=== PATIENT | male | born 1940 | race Two or more races ===

== ENCOUNTER 2019-03-02 12:16 | Inpatient (IN) | payer MEDICARE, OTHER ==
--- NOTE | 2019-03-02 13:06 | PDOC ---
History of Present Illness - General Chief Complaint: Shortness of Breath Stated Complaint: TROUBLE BREATHING Time Seen by Provider: 03/02/19 13:02 History Source: Patient Exam Limitations: No Limitations - History of Present Illness Initial Comments: 03/02/19 13:02 Andrew Mcdermott is a 78M with PMH asthma, COPD on home nebs, GERD presenting with shortness of breath. Patient and family at bedside report patient has been having 2 days of worsening SOB. Have been using inhalers and nebs without significant improvement. Has been smoking 1-2ppd for 60 years, has been reduced to 0.5ppd in recent years but still smokes. Has a chronic cough but nonproductive. Has also been having nausea without vomiting as well as GERD-like reflux burning for the last few days, took Protonix without much improvement. Constipation for the last few days as well, has abd pain and swelling for 2 days, has had a BM today without improvement of abd pain. No past surgical history or abd surgeries. Denies chest pain, palpitations, dizziness, weakness, urinary sx. Chronic lower back pain, denies recent injuries. Past History - Past Medical History Allergies/Adverse Reactions: Allergies Allergy/AdvReac Type Severity Reaction Status Date / Time No Known Allergies Allergy Verified 03/02/19 12:45 Home Medications: Ambulatory Orders Meclizine HCl [Antivert -] 25 mg PO TID PRN #14 tablet 08/04/13 No Home Medications 0 dose .ROUTE UTDICT 08/04/13 Asthma: Yes COPD: Yes - Immunization History Immunization Up to Date: Yes - Psycho Social/Smoking Cessation Hx Smoking History: Former smoker Have you smoked in the past 12 months: No If you are a former smoker, when did you quit?: 2 months ago Information on smoking cessation initiated: No Hx Alcohol Use: No Drug/Substance Use Hx: No Substance Use Type: None Review of Systems - Review of Systems Able to Perform ROS?: Yes Constitutional: No: Chills, Fever, Loss of Appetite, Weakness HEENTM: No: Symptoms Reported Respiratory: Yes: Cough, Shortness of Breath, Wheezing Cardiac (ROS): No: Chest Pain, Irregular Heart Rate, Lightheadedness, Palpitations ABD/GI: Yes: Constipated, Nausea. No: Diarrhea, Poor Appetite, Poor Fluid Intake, Vomiting : No: Symptoms Reported Musculoskeletal: Yes: Back Pain. No: Neck Pain Integumentary: Yes: Rash Neurological: No: Symptoms reported Endocrine: No: Symptoms Reported Hematologic/Lymphatic: No: Symptoms Reported All Other Systems: Reviewed and Negative *Physical Exam - Vital Signs Last Vital Signs Temp Pulse Resp BP Pulse Ox 98.7 F 89 20 118/89 95 03/02/19 12:41 03/02/19 12:41 03/02/19 12:41 03/02/19 12:41 03/02/19 12:41 - Physical Exam General Appearance: Yes: Nourished, Appropriately Dressed, Mild Distress, Thin HEENT: positive: EOMI, BLAYNE, Normal Voice, Symmetrical, Pharynx Normal, Hearing Grossly Normal. negative: Scleral Icterus (R), Scleral Icterus (L) Neck: positive: Supple. negative: Tender, Lymphadenopathy (R), Lymphadenopathy (L) Respiratory/Chest: positive: Labored Respiration, Wheezing. negative: Chest Tender, Lungs Clear (poor air movement), Normal Breath Sounds, Respiratory Distress, Accessory Muscle Use, Crackles, Rales, Rhonchi, Stridor Cardiovascular: positive: Regular Rhythm, Regular Rate. negative: Murmur Gastrointestinal/Abdominal: positive: Normal Bowel Sounds, Tender (periumbilical ), Distended, Guarding, Rebound. negative: Flat, Soft, Pulsatile Mass Musculoskeletal: positive: Normal Inspection. negative: CVA Tenderness, Decreased Range of Motion, Vertebral Tenderness Extremity: positive: Normal Capillary Refill, Normal Inspection, Normal Range of Motion. negative: Tender, Pedal Edema, Swelling, Calf Tenderness Integumentary: positive: Normal Color, Dry, Warm, Rash (punctate erythematous rashes with central excoriations noted to chest and back without web space imvolvment) Neurologic: positive: Fully Oriented, Alert, Normal Mood/Affect, Normal Response ED Treatment Course - LABORATORY CBC & Chemistry Diagram: 03/02/19 13:45 03/02/19 13:45 Medical Decision Making - Medical Decision Making 03/02/19 13:02 Andrew Mcdermott is a 78M with PMH asthma, COPD on home nebs, GERD presenting with shortness of breath and abdominal pain. Patient presentation concerning for COPD exacerbation given smoking history and COPD. Also concerned for CHF exacerbation vs. CO vs. anemia vs. arrhythmia given SOB, but has no CHF history or cardiac history. Abd pain concerning for mass vs. hernia vs. internal bleed. CMP CBC CP Lipase ECG CXR CT abdomen Giving 3x Duonebs, 125mg Solu-Medrol for COPD, on 2L NC in room. 03/02/19 14:20 Bedside US shows 1.5L of fluid retained in bladder with moderate to severe hydronephrosis bilaterally. Normal appearing GB. 03/02/19 16:[address] Kim catheter with 16Fr, unable to pass. Tried again with 18Fr coude with lidocaine jelly, unable to pass, blood and clot at end of catheter. Consulted Dr. Stanford with Urology at 15:40 for Kim placement and decompression of bladder, pending call-back. Radiology reports 20-25% possible PTX to R lung, recommends advanced imaging before chest tube. Will order CT scan non-con chest. Labs notable for: - Cr 5.4 - WBC 11 - BUN 148 - BNP 300 JEFRY consistent with significant retention and hydro, pending Urology consult at this time for Kim and evaluation. Patient cannot get CT with contrast, getting CT abd/pel non-con. 03/02/19 16:[address] Stanford at bedside, placed 16Fr Coude. >2000mL dark brown urine and still draining. Patient's abdominal pain resolved. 03/02/19 18:32 CT read shows no evidence of PTX, large blebs. Has bilateral hydronephrosis. Patient needs admission for further evaluation of JEFRY and cause of retention, as well as COPD exacerbation. Urinary output 2700. 03/02/19 19:06 Spoke to rio Dumont for admission to Med-Surg under her service. Discharge - Discharge Information Problems reviewed: Yes Clinical Impression/Diagnosis: Shortness of breath, COPD exacerbation, JEFRY (acute kidney injury), Urinary retention Condition: Stable Disposition: HOME - Follow up/Referral - Patient Discharge Instructions - Post Discharge Activity
[2019-03-02] MEDS ORDERED: ALBUTEROL SO4 2.5/IPRATROPIUM 0.5 INH SOL 3 ML VIAL.NEB. NEB ONE ×2 (13:16→13:23)
[2019-03-02] MEDS ORDERED: methylPREDNISolone NA SUCC 125 MG/2 ML VIAL IVPUSH ONE (13:17)
[2019-03-02] MEDS ORDERED: methylPREDNISolone NA SUCC 125 MG/2 ML VIAL ONE ×2 (13:23→21:27)
--- NOTE | 2019-03-02 14:09 | PDOC ---
Documentation entered by Gabriella Del Rosario SCRIBE, acting as scribe for Pasha Wylie MD. Pasha Wylie MD: This documentation has been prepared by the Carin torres Xhesika, SCRIBE, under my direction and personally reviewed by me in its entirety. I confirm that the documentation accurately reflects all work, treatment, procedures, and medical decision making performed by me. Attending Attestation - Resident Resident Name: ShellieJeff - ED Attending Attestation I have performed the following: I have examined & evaluated the patient, The case was reviewed & discussed with the resident, I agree w/resident's findings & plan, Exceptions are as noted - HPI HPI: 03/02/19 13:42 The patient is a 78 year old male with a significant PMH of COPD (does not use home O2), asthma, GERD who presents to the emergency department for several days of worsening SOB associated with non productive cough. Family at bedside reports pt has been endsoring abdominal pain/swelling and constipation, took Protonix and had a normal BM today, with no improvement of symptoms. The patient denies chest pain, headache and dizziness. Denies fever, chills, nausea, vomiting, diarrhea. Denies dysuria, frequency, urgency and hematuria. Allergies: NKDA Social history: 1-2ppd for 60 years, has been reduced to 0.5ppd in recent years - Physicial Exam PE: 03/02/19 13:43 GENERAL: The patient is awake, alert, Nontoxic - in no acute distress. HEAD: Normocephalic, atraumatic. EYES: extraocular movements intact, sclera anicteric, conjunctiva clear. ENT: Normal voice, Moist mucous membranes. NECK: Normal range of motion, supple without lymphadenopathy, JVD, or masses. LUNGS: wheezing b/l, mild resp distress HEART: Regular rate and rhythm, normal S1 and S2 without murmur, rub or gallop. ABDOMEN: firm distended lower abd that is diffusely tender EXTREMITIES: Normal range of motion, no edema NEUROLOGICAL: No facial asymmetry, Normal speech, movin gall 4 extremities spontaneously and symmetrically PSYCH: Normal mood, normal affect. SKIN: Warm, Dry, normal turgor, no rashes or lesions noted. - Medical Decision Making 03/02/19 13:37 Differential for the patient's worsening cough includes COPD exacerbation, pneumonia -we will treat the patient with nebs and steroids as there is wheezing will obtain chest x-ray to rule out pneumonia. The patient's abdominal pain consider possible ileus versus obstruction, versuspancreatitis versus UTI 03/02/19 16:08 At that ultrasound noted for significantly distended bladder Unable to place a Kim catheter, urology was consulted Patient creatinine is elevated 5 likely secondary to obstructive nephropathy Patient's chest x-ray also noted to have possible right-sided pneumothorax versus skinfold will obtain a CT first to further evaluate. Anticipate admission for further management awaiting neurology Heart Score/ECG Review - ECG Impressions Comment:: 03/02/19 14:09 Twelve-lead EKG was performed and reviewed by me. There is normal sinus rhythm with a normal rate. Rate of 97 Right bundle branch block
[2019-03-02 14:30] LABS: BASO % 0.1 % (0-2.0); EOS % 2.1 % (0-4.5); HEMATOCRIT 42.8 % (35.4-49); HEMOGLOBIN 14.3 GM/dL (11.7-16.9); LYMPH % 4.5 % (8-40); MCH 29.7 pg (25.7-33.7); MCHC 33.4 g/dl (32.0-35.9); MEAN CELL VOLUME 89.2 fl (80-96); MEAN PLT VOLUME 7.5 fl (7.5-11.1); MONO % 9.6 % (3.8-10.2); NEUT % 83.7 % (42.8-82.8); PLATELET COUNT 446 K/MM3 (134-434); RDW 14.6 % (11.9-15.9); WHITE BLOOD COUNT 11.2 K/mm3 (4.0-10.0)
[2019-03-02] MEDS ORDERED: LIDOCAINE HCL 2% JELLY (5 ML/TUBE) ONE (15:10)
[2019-03-02 15:20] LABS: ALBUMIN 3.6 g/dl (3.4-5.0); ALK PHOS 79 U/L (45-117); ANION GAP 13 MMOL/L (8-16); BILIRUBIN,TOTAL 0.3 mg/dL (0.2-1); CALCIUM 9.3 mg/dL (8.5-10.1); CHLORIDE 94 mmol/L (98-107); CO2 24 mmol/L (21-32); CREATININE 5.4 mg/dL (0.55-1.3); GLUCOSE,RANDOM 121 mg/dL (74-106); LIPASE 198 U/L (73-393); POTASSIUM 5.1 mmol/L (3.5-5.1); SGOT/AST 18 U/L (15-37); SGPT/ALT 20 U/L (13-61); SODIUM 131 mmol/L (136-145); TOT PROT 7.4 g/dl (6.4-8.2)
--- NOTE | 2019-03-02 15:32 | EKG ---
Test Reason : Blood Pressure : / mmHG Vent. Rate : 097 BPM Atrial Rate : 097 BPM P-R Int : 110 ms QRS Dur : 142 ms QT Int : 374 ms P-R-T Axes : 088 091 071 degrees QTc Int : 474 ms SINUS RHYTHM WITH SHORT AR RIGHT BUNDLE BRANCH BLOCK ABNORMAL ECG WHEN COMPARED WITH ECG OF 04-AUG-2013 16:39, RIGHT BUNDLE BRANCH BLOCK IS NOW PRESENT Confirmed by EDWIN DINERO, ALYSIA ([id number]) on 03/02/2019 3:32:05 PM Referred By: Confirmed By:ALYSIA PINEDA MD
[2019-03-02 15:33] LABS: BLOOD UREA NITROGEN 147.8 mg/dL (7-18)
--- NOTE | 2019-03-02 16:45 | CON.GU ---
Consult Consult Specialty:: urology Reason for Consultation:: acute urinary retention - History of Present Illness Chief Complaint: urinary retention History of Present Illness: Patient is a 78 yo male with pneumothorax, urinary retention with 2 liters noted, and bilateral hydronephrosis. Patient denies gross hematuria, dysuria, previous episodes of urinary retention or flank pain or nausea/vomiting. - History Source History Provided By: Patient Limitations to Obtaining History: No Limitations - Alcohol/Substance Use Hx Alcohol Use: No - Smoking History Smoking history: Former smoker Have you smoked in the past 12 months: No If you are a former smoker, when did you quit?: 2 months ago Home Medications - Allergies Allergies/Adverse Reactions: Allergies Allergy/AdvReac Type Severity Reaction Status Date / Time No Known Allergies Allergy Verified 03/02/19 12:45 - Home Medications Home Medications: Ambulatory Orders Meclizine HCl [Antivert -] 25 mg PO TID PRN #14 tablet 08/04/13 No Home Medications 0 dose .ROUTE UTDICT 08/04/13 Physical Exam- Vital Signs: Vital Signs Temperature 98.7 F 03/02/19 12:41 Pulse Rate 89 03/02/19 12:41 Respiratory Rate 20 03/02/19 12:41 Blood Pressure 118/89 03/02/19 12:41 O2 Sat by Pulse Oximetry (%) 95 03/02/19 12:41 Constitutional: Yes: No Distress, Ashen, Cachectic Eyes: Yes: WNL, Conjunctiva Clear, EOM Intact HENT: Yes: WNL, Atraumatic, Normocephalic Neck: Yes: WNL, Supple, Trachea Midline Cardiovascular: Yes: WNL, Regular Rate and Rhythm Respiratory: Yes: On Nasal O2 Gastrointestinal: Yes: Normal Bowel Sounds, Distention Renal/: Yes: WNL Kidneys: Yes: WNL Pelvis: Yes: Bladder Palpable Testicles: Yes: WNL Scrotum: Yes: WNL Prostate Exam: Yes: WNL Labs: CBC, BMP 03/02/19 13:45 03/02/19 13:45 Imaging - Results Cat Scan: Image Reviewed Assessment/Plan procedure note patient had 18 norwegian albrecht placed impression acute renal failure urinary retention bilateral hydronephrosis plan nephrology consult start flomax folllow creatinine check ua and culture 25 minutes spent with patient and daughter and ER attending
[2019-03-02 19:24] LABS: EPI CELLS 1.8 /HPF (0-5/HPF); HYALINE CASTS 5 /lpf (0-8); URINE APPEARANCE CLEAR; URINE BACTERIA 0.5 /hpf (NEGATIVE); URINE BILIRUBIN NEGATIVE (NEGATIVE); URINE COLOR YELLOW; URINE GLUCOSE (UA) NEGATIVE (NEGATIVE); URINE KETONE NEGATIVE (NEGATIVE); URINE LEUK ESTERASE 2+ (NEGATIVE); URINE NITRITE NEGATIVE (NEGATIVE); URINE PROTEIN NEGATIVE (NEGATIVE); URINE RBC 4 /hpf (0-4); URINE UROBILINOGEN 0.2 mg/dL (0.2-1.0); URINE WBC 13 /hpf (0-5)
--- NOTE | 2019-03-02 20:28 | HP ---
Admitting History and Physical - Primary Care Physician PCP: Juancho Martinez - Admission History of Present Illness: The patient is a 78 year old male with a significant PMH of COPD (does not use home O2), asthma, GERD who presents to the emergency department for several days of worsening SOB associated with non productive cough. Family at bedside reports pt has been endsoring abdominal pain/swelling and constipation, took Protonix and had a normal BM today, with no improvement of symptoms. The patient denies chest pain, headache and dizziness. Denies fever, chills, nausea, vomiting, diarrhea. Denies dysuria, frequency, urgency and hematuria. Allergies: NKDA Social history: 1-2ppd for 60 years, has been reduced to 0.5ppd in recent years - Past Medical History Pulmonary: Yes: COPD Gastrointestinal: Yes: GERD - Smoking History Smoking history: Former smoker Have you smoked in the past 12 months: No If you are a former smoker, when did you quit?: 2 months ago - Alcohol/Substance Use Hx Alcohol Use: No Home Medications - Allergies Allergies/Adverse Reactions: Allergies Allergy/AdvReac Type Severity Reaction Status Date / Time No Known Allergies Allergy Verified 03/02/19 12:45 - Home Medications Home Medications: Ambulatory Orders Meclizine HCl [Antivert -] 25 mg PO TID PRN #14 tablet 08/04/13 No Home Medications 0 dose .ROUTE UTDICT 08/04/13 Physical Examination Vital Signs: Vital Signs Temperature 98.7 F 03/02/19 12:41 Pulse Rate 89 03/02/19 12:41 Respiratory Rate 20 03/02/19 12:41 Blood Pressure 118/89 03/02/19 12:41 O2 Sat by Pulse Oximetry (%) 95 03/02/19 12:41 Constitutional: Yes: No Distress HENT: Yes: Atraumatic Neck: Yes: Supple Cardiovascular: Yes: Regular Rate and Rhythm Respiratory: Yes: CTA Bilaterally Gastrointestinal: Yes: Normal Bowel Sounds Neurological: Yes: Alert Labs: CBC, BMP 03/02/19 13:45 03/02/19 13:45 Problem List - Problems (1) JEFRY (acute kidney injury) Assessment/Plan: ivf Code(s): N17.9 - ACUTE KIDNEY FAILURE, UNSPECIFIED (2) COPD exacerbation Assessment/Plan: steroids duo nebs Code(s): J44.1 - CHRONIC OBSTRUCTIVE PULMONARY DISEASE W (ACUTE) EXACERBATION (3) Shortness of breath Code(s): R06.02 - SHORTNESS OF BREATH (4) Urinary retention Assessment/Plan: on flomax Code(s): R33.9 - RETENTION OF URINE, UNSPECIFIED Assessment/Plan Laboratory Tests 03/02/19 03/02/19 03/02/19 13:45 13:45 13:45 WBC 11.2 H RBC 4.80 Hgb 14.3 Hct 42.8 MCV 89.2 MCH 29.7 MCHC 33.4 RDW 14.6 Plt Count 446 H D MPV 7.5 Absolute Neuts (auto) 9.4 H Neutrophils % 83.7 H Lymphocytes % 4.5 L D Monocytes % 9.6 D Eosinophils % 2.1 Basophils % 0.1 Nucleated RBC % 0 Sodium 131 L Potassium 5.1 Chloride 94 L Carbon Dioxide 24 Anion Gap 13 BUN 147.8 H* Creatinine 5.4 H Est GFR (CKD-EPI)AfAm 10.83 Est GFR (CKD-EPI)NonAf 9.34 Random Glucose 121 H Calcium 9.3 Total Bilirubin 0.3 AST 18 ALT 20 Alkaline Phosphatase 79 Creatine Kinase 297 Creatine Kinase Index 4.8 CK-MB (CK-2) 14.4 H Troponin I < 0.02 B-Natriuretic Peptide 327.5 Total Protein 7.4 Albumin 3.6 Lipase 198 Urine Color Urine Appearance Urine pH Ur Specific [place] Urine Protein Urine Glucose (UA) Urine Ketones Urine Blood Urine Nitrite Urine Bilirubin Urine Urobilinogen Ur Leukocyte Esterase Urine WBC (Auto) Urine RBC (Auto) Urine Casts (Auto) U Epithel Cells (Auto) Urine Bacteria (Auto) 03/02/19 18:30 WBC RBC Hgb Hct MCV MCH MCHC RDW Plt Count MPV Absolute Neuts (auto) Neutrophils % Lymphocytes % Monocytes % Eosinophils % Basophils % Nucleated RBC % Sodium Potassium Chloride Carbon Dioxide Anion Gap BUN Creatinine Est GFR (CKD-EPI)AfAm Est GFR (CKD-EPI)NonAf Random Glucose Calcium Total Bilirubin AST ALT Alkaline Phosphatase Creatine Kinase Creatine Kinase Index CK-MB (CK-2) Troponin I B-Natriuretic Peptide Total Protein Albumin Lipase Urine Color Yellow Urine Appearance Clear Urine pH 5.0 Ur Specific [place] 1.014 Urine Protein Negative Urine Glucose (UA) Negative Urine Ketones Negative Urine Blood 2+ H Urine Nitrite Negative Urine Bilirubin Negative Urine Urobilinogen 0.2 Ur Leukocyte Esterase 2+ H Urine WBC (Auto) 13 Urine RBC (Auto) 4 Urine Casts (Auto) 5 U Epithel Cells (Auto) 1.8 Urine Bacteria (Auto) 0.5 Active Medications Generic Name Dose Route Start Last Admin Trade Name Freq PRN Reason Stop Dose Admin Acetaminophen 650 mg 03/02/19 20:31 Tylenol - PO Q6H PRN FEVER Albuterol/Ipratropium 1 amp 03/02/19 20:31 03/03/19 03:22 Duoneb - NEB 1 amp Q4H PRN Administration SHORTNESS OF BREATH Heparin Sodium (Porcine) 5,000 unit 03/02/19 22:00 03/03/19 10:45 Heparin - SQ 5,000 unit BID ENMA Administration Sodium Chloride 1,000 mls @ 75 mls/hr 03/02/19 23:00 03/03/19 00:06 Normal Saline - IV 75 mls/hr ASDIR ENMA Administration Prednisone 40 mg 03/03/19 12:00 03/03/19 13:37 Deltasone - PO 40 mg DAILY ENMA Administration
[2019-03-02] MEDS ORDERED: ACETAMINOPHEN 325 MG TABLET (FP) PO PRN (20:31)
[2019-03-02] MEDS ORDERED: PANTOPRAZOLE SODIUM 40 MG VIAL IVPUSH ONE (21:20)
[2019-03-02] MEDS ORDERED: HEPARIN NA (PORCINE) 5,000 UNITS/ML 1ML VIAL ONE (21:27)
[2019-03-02] MEDS ORDERED: PANTOPRAZOLE SODIUM 40 MG VIAL ONE (21:28)
[2019-03-02] MEDS: HEPARIN NA (PORCINE) 5,000 UNITS/ML 1ML VIAL SQ SCH (22:03)
[2019-03-02] MEDS: methylPREDNISolone NA SUCC 40 MG/1 ML VIAL IVPUSH SCH (22:03)
[2019-03-02 23:38] VITALS: BMI 20.5
[2019-03-02] MEDS: ALBUTEROL SO4 2.5/IPRATROPIUM 0.5 INH SOL 3 ML VIAL.NEB. NEB PRN (23:50)
[2019-03-03] MEDS: SODIUM CHLORIDE 1,000 ML IV SCH (00:06)
[2019-03-03] MEDS: methylPREDNISolone NA SUCC 40 MG/1 ML VIAL IVPUSH SCH ×2 (02:51→10:45)
[2019-03-03] MEDS: ALBUTEROL SO4 2.5/IPRATROPIUM 0.5 INH SOL 3 ML VIAL.NEB. NEB PRN (03:22)
[2019-03-03 08:27] LABS: BASO % 0.2 % (0-2.0); HEMATOCRIT 35.1 % (35.4-49); HEMOGLOBIN 12.1 GM/dL (11.7-16.9); LYMPH % 1.9 % (8-40); MCH 29.9 pg (25.7-33.7); MCHC 34.3 g/dl (32.0-35.9); MEAN CELL VOLUME 87.2 fl (80-96); MEAN PLT VOLUME 7.2 fl (7.5-11.1); MONO % 2.3 % (3.8-10.2); NEUT % 95.6 % (42.8-82.8); PLATELET COUNT 329 K/MM3 (134-434); RBC 4.03 M/mm3 (4.00-5.60); WHITE BLOOD COUNT 9.1 K/mm3 (4.0-10.0)
--- NOTE | 2019-03-03 09:07 | EKG ---
Test Reason : Blood Pressure : / mmHG Vent. Rate : 099 BPM Atrial Rate : 099 BPM P-R Int : 116 ms QRS Dur : 132 ms QT Int : 370 ms P-R-T Axes : 089 089 064 degrees QTc Int : 474 ms POOR DATA QUALITY, INTERPRETATION MAY BE ADVERSELY AFFECTED NORMAL SINUS RHYTHM POSSIBLE LEFT ATRIAL ENLARGEMENT RIGHT BUNDLE BRANCH BLOCK ABNORMAL ECG WHEN COMPARED WITH ECG OF 04-AUG-2013 16:39, RIGHT BUNDLE BRANCH BLOCK IS NOW PRESENT Confirmed by Zachariah Wu MD ([id number]) on 03/03/2019 9:07:10 AM Referred By: Confirmed By:Zachariah Wu MD
[2019-03-03 09:19] LABS: ALBUMIN 2.8 g/dl (3.4-5.0); BILIRUBIN,TOTAL 0.2 mg/dL (0.2-1); CREATININE 3.6 mg/dL (0.55-1.3); POTASSIUM 3.9 mmol/L (3.5-5.1); TOT PROT 5.7 g/dl (6.4-8.2)
--- NOTE | 2019-03-03 09:26 | CONSULT ---
Consultation: REQUESTING PROVIDER: Michelle CONSULT REQUEST: We have been asked to medically evaluate this patient for Acute renal failure HISTORY OF PRESENT ILLNESS: 78 year old, latvian speaking male with a history of severe COPD, asthma, GERD was brought to the hospital for shortness of breath and lethargy of several days duration. We are consulted for evaluation and management of acute renal failure. Per patient's son, patient had been complaining of urinary retention for ~ 1 year. He states that on occasion, his father would tell him that he dribbles urine and even requested to get adult diapers to alleviate the problem. He was seen in a different hospital around 6 months ago, where the son says he got an ultrasound and was told he was "full of urine". No family history of cancer or blood disorders. No previous history of kidney disorders. REVIEW OF SYSTEMS: CONSTITUTIONAL: Absent: fever, chills, diaphoresis, generalized weakness, malaise, loss of appetite, weight change HEENT: Absent: rhinorrhea, nasal congestion, throat pain, throat swelling, difficulty swallowing, mouth swelling, ear pain, eye pain, visual changes CARDIOVASCULAR: Absent: chest pain, syncope, palpitations, irregular heart rate, lightheadedness , peripheral edema RESPIRATORY: Absent: cough, shortness of breath, dyspnea with exertion, orthopnea, wheezing, stridor, hemoptysis GASTROINTESTINAL: Absent: abdominal pain, abdominal distension, nausea, vomiting, diarrhea, constipation, melena, hematochezia GENITOURINARY: Absent: dysuria, frequency, urgency, hesitancy, hematuria, flank pain, genital pain MUSCULOSKELETAL: Absent: myalgia, arthralgia, joint swelling, back pain, neck pain SKIN: Absent: rash, itching, pallor HEMATOLOGIC/IMMUNOLOGIC: Absent: easy bleeding, easy bruising, lymphadenopathy, frequent infections ENDOCRINE: Absent: unexplained weight gain, unexplained weight loss, heat intolerance, cold intolerance NEUROLOGIC: Absent: headache, focal weakness or paresthesias, dizziness, unsteady gait, seizure, mental status changes, bladder or bowel incontinence PSYCHIATRIC: Absent: anxiety, depression, suicidal or homicidal ideation, hallucinations. PHYSICAL EXAMINATION Vital Signs - 24 hr 03/02/19 03/02/19 03/02/19 12:41 22:31 23:33 Temperature 98.7 F 98.1 F Pulse Rate 89 107 H Pulse Rate [ 106 H Right Brachial] Respiratory 20 19 26 H Rate Blood Pressure 118/89 147/62 Blood Pressure 118/55 L [Right Arm] O2 Sat by Pulse 95 97 Oximetry (%) 03/02/19 03/03/19 03/03/19 23:46 02:00 06:00 Temperature 98.0 F 98.5 F Pulse Rate 99 H 95 H Pulse Rate [ Right Brachial] Respiratory 18 18 Rate Blood Pressure 126/55 L 115/53 L Blood Pressure [Right Arm] O2 Sat by Pulse 97 Oximetry (%) GENERAL: A&Ox3, no acute distress EYES: PERRLA, EOMI ENT: Moist mucus membranes NECK: No JVD LUNGS: decreased breath sounds, no wheezes HEART: RRR, no murmurs ABDOMEN: Soft, nontender, BS present MUSCULOSKELETAL: No CVA Tenderness EXTREMITIES: 2+ pulses, no edema. NEUROLOGICAL: Cranial nerves II-XII intact. : Albrecht in place draining 1L clear yellow urine Laboratory Results - last 24 hr 03/02/19 03/02/19 03/02/19 13:45 13:45 13:45 WBC 11.2 H RBC 4.80 Hgb 14.3 Hct 42.8 MCV 89.2 MCH 29.7 MCHC 33.4 RDW 14.6 Plt Count 446 H D MPV 7.5 Absolute Neuts (auto) 9.4 H Neutrophils % 83.7 H Lymphocytes % 4.5 L D Monocytes % 9.6 D Eosinophils % 2.1 Basophils % 0.1 Nucleated RBC % 0 Sodium 131 L Potassium 5.1 Chloride 94 L Carbon Dioxide 24 Anion Gap 13 BUN 147.8 H* Creatinine 5.4 H Est GFR (CKD-EPI)AfAm 10.83 Est GFR (CKD-EPI)NonAf 9.34 Random Glucose 121 H Calcium 9.3 Total Bilirubin 0.3 AST 18 ALT 20 Alkaline Phosphatase 79 Creatine Kinase 297 Creatine Kinase Index 4.8 CK-MB (CK-2) 14.4 H Troponin I < 0.02 B-Natriuretic Peptide 327.5 Total Protein 7.4 Albumin 3.6 Lipase 198 Urine Color Urine Appearance Urine pH Ur Specific [place] Urine Protein Urine Glucose (UA) Urine Ketones Urine Blood Urine Nitrite Urine Bilirubin Urine Urobilinogen Ur Leukocyte Esterase Urine WBC (Auto) Urine RBC (Auto) Urine Casts (Auto) U Epithel Cells (Auto) Urine Bacteria (Auto) 1203/03/19 03/03/19 18:30 07:35 07:35 WBC 9.1 RBC 4.03 Hgb 12.1 Hct 35.1 L D MCV 87.2 MCH 29.9 MCHC 34.3 RDW 14.0 Plt Count 329 D MPV 7.2 L Absolute Neuts (auto) 8.7 H Neutrophils % 95.6 H Lymphocytes % 1.9 L D Monocytes % 2.3 L Eosinophils % 0.0 D Basophils % 0.2 Nucleated RBC % 0 Sodium 137 Potassium 3.9 Chloride 100 Carbon Dioxide 28 Anion Gap 9 BUN Creatinine 3.6 H Est GFR (CKD-EPI)AfAm 17.68 Est GFR (CKD-EPI)NonAf 15.25 Random Glucose 154 H Calcium 8.0 L Total Bilirubin 0.2 AST 12 L ALT 18 Alkaline Phosphatase 62 Creatine Kinase Creatine Kinase Index CK-MB (CK-2) Troponin I B-Natriuretic Peptide Total Protein 5.7 L Albumin 2.8 L Lipase Urine Color Yellow Urine Appearance Clear Urine pH 5.0 Ur Specific [place] 1.014 Urine Protein Negative Urine Glucose (UA) Negative Urine Ketones Negative Urine Blood 2+ H Urine Nitrite Negative Urine Bilirubin Negative Urine Urobilinogen 0.2 Ur Leukocyte Esterase 2+ H Urine WBC (Auto) 13 Urine RBC (Auto) 4 Urine Casts (Auto) 5 U Epithel Cells (Auto) 1.8 Urine Bacteria (Auto) 0.5 Active Medications Generic Name Dose Route Start Last Admin Trade Name Freq PRN Reason Stop Dose Admin Acetaminophen 650 mg 03/02/19 20:31 Tylenol - PO Q6H PRN FEVER Albuterol/Ipratropium 1 amp 03/02/19 20:31 03/03/19 03:22 Duoneb - NEB 1 amp Q4H PRN Administration SHORTNESS OF BREATH Heparin Sodium (Porcine) 5,000 unit 03/02/19 22:00 03/02/19 22:03 Heparin - SQ 5,000 unit BID ENMA Administration Sodium Chloride 1,000 mls @ 75 mls/hr 03/02/19 23:00 03/03/19 00:06 Normal Saline - IV 75 mls/hr ASDIR ENMA Administration Methylprednisolone Sodium Succinate 60 mg 03/02/19 21:00 03/03/19 02:51 Solu-Medrol - IVPUSH 60 mg Q6H-IV ENMA Administration ASSESSMENT/PLAN: 78 year old, latvian speaking male with a history of severe COPD, asthma, GERD was brought to the hospital for shortness of breath and lethargy of several days duration. #Acute Renal Failure: appears to be improving after albrecht placement, this is likely 2/2 post-obstructive nephropathy -CT abd/pelvis: severely distended bladder with enlarged prostate and bilateral hydronephrosis with bilateral kidney stones -albrecht in place -urology following -continue to hydrate NS @ 75cc/hr -encourage oral intake -continue to monitor creatinine -will need to have discussion with urology and primary about management of prostate Dispo: We will continue to follow the patient. Thank you for this consultative opportunity. Visit type - Emergency Visit Emergency Visit: No - New Patient This patient is new to me today: Yes Date on this admission: 03/03/19 - Critical Care Critical Care patient: No ATTENDING PHYSICIAN STATEMENT I saw and evaluated the patient. I reviewed the resident's note and discussed the case with the resident. I agree with the resident's findings and plan as documented. SUBJECTIVE: OBJECTIVE: ASSESSMENT AND PLAN:
[2019-03-03 09:38] LABS: BLOOD UREA NITROGEN 116.1 mg/dL (7-18)
[2019-03-03] MEDS: HEPARIN NA (PORCINE) 5,000 UNITS/ML 1ML VIAL SQ SCH ×2 (10:45→22:40)
--- NOTE | 2019-03-03 11:29 | CON.PULM ---
Consult Consult Specialty:: PULM/CCM Referred by:: GAYE Reason for Consultation:: SOB - History of Present Illness Chief Complaint: SOB History of Present Illness: 78 M, history of severe COPD, active smoker (he says 2 cigarettes, says about 1/2 to 1PPD), and GERD. Admitted via the ER due to progressive shortness of breath and lethargy of several days duration. No travel history or sick contacts. Some increase in cough but is essentially non-productive. No fever or chills. No night sweats or hemoptysis. CT: diffuse severe emphysema with several scattered nodules, the largest being around 2 mm. Chronic changes and scarring. NAS granuloma. - History Source History Provided By: Patient Limitations to Obtaining History: No Limitations - Past Medical History Pulmonary: Yes: Bronchitis, COPD, Pneumonia. No: Asthma, Cancer, O2 Dependent, Previously Intubated, Pulmonary Embolus, Pulmonary Fibrosis, Sleep Apnea Gastrointestinal: Yes: GERD - Alcohol/Substance Use Hx Alcohol Use: No - Smoking History Smoking history: Former smoker Have you smoked in the past 12 months: No If you are a former smoker, when did you quit?: 2 months ago Home Medications - Allergies Allergies/Adverse Reactions: Allergies Allergy/AdvReac Type Severity Reaction Status Date / Time No Known Allergies Allergy Verified 03/02/19 12:45 - Home Medications Home Medications: Ambulatory Orders Meclizine HCl [Antivert -] 25 mg PO TID PRN #14 tablet 08/04/13 No Home Medications 0 dose .ROUTE UTDICT 08/04/13 Review of Systems - Review of Systems Constitutional: denies: Chills, Fever, Night Sweats, Unintentional Wgt. Loss Eyes: reports: No Symptoms HENT: reports: No Symptoms Neck: reports: No Symptoms Cardiovascular: reports: Shortness of Breath. denies: Chest Pain, Edema, Palpitations Respiratory: reports: Cough, SOB, SOB on Exertion. denies: Hemoptysis, Orthopnea, PND, Snoring, Wheezing Gastrointestinal: reports: No Symptoms Genitourinary: reports: Frequency, Urgency Breasts: reports: No Symptoms Reported Musculoskeletal: reports: No Symptoms Integumentary: reports: No Symptoms Neurological: reports: No Symptoms Endocrine: reports: No Symptoms Hematology/Lymphatic: reports: No Symptoms Psychiatric: reports: No Symptoms Physical Exam Vital Sings: Vital Signs Temperature 98.4 F 03/03/19 10:00 Pulse Rate 97 H 03/03/19 10:00 Respiratory Rate 20 03/03/19 10:00 Blood Pressure 116/57 L 03/03/19 10:00 O2 Sat by Pulse Oximetry (%) 97 03/02/19 23:46 Constitutional: Yes: No Distress, Thin Eyes: Yes: Conjunctiva Clear, EOM Intact HENT: Yes: Atraumatic, Normocephalic Neck: Yes: Supple, Trachea Midline Cardiovascular: Yes: Regular Rate and Rhythm Respiratory: Yes: Cough, Diminished, Rhonchi. No: Accessory Muscle Use, Rales, SOB, SOB on Exertion, Stridor, Tachypnea, Wheezes ...Inspection: Yes: WNL ...Clubbing: No Gastrointestinal: Yes: Normal Bowel Sounds, Soft Renal/: Yes: WNL Musculoskeletal: Yes: WNL Extremities: Yes: WNL Edema: No Peripheral Pulses WNL: Yes Integumentary: Yes: WNL Neurological: Yes: WNL, Alert, Oriented ...Motor Strength: WNL Psychiatric: Yes: WNL, Alert, Oriented Labs: CBC, BMP 03/03/19 07:35 03/03/19 07:35 Imaging - Results Chest X-ray: Report Reviewed, Image Reviewed Cat Scan: Report Reviewed, Image Reviewed Problem List - Problems (1) COPD (chronic obstructive pulmonary disease) Code(s): J44.9 - CHRONIC OBSTRUCTIVE PULMONARY DISEASE, UNSPECIFIED (2) Smoker Code(s): F17.200 - NICOTINE DEPENDENCE, UNSPECIFIED, UNCOMPLICATED (3) Pulmonary nodules/lesions, multiple Code(s): R91.8 - OTHER NONSPECIFIC ABNORMAL FINDING OF LUNG FIELD (4) Emphysema of lung Code(s): J43.9 - EMPHYSEMA, UNSPECIFIED (5) Shortness of breath Code(s): R06.02 - SHORTNESS OF BREATH (6) Urinary retention Code(s): R33.9 - RETENTION OF URINE, UNSPECIFIED Assessment/Plan Prednisone OD Monitor off ABX: no evidence of respiratory tract infection No smoking counseled Can be discharged on LAMA/LABA BD TX PRN Outpatient PFTs No clinical indication of OSAS Yearly LDCT screening There is no Pulmonary contraindication for DC planning Thank you Dr Madsen
--- NOTE | 2019-03-03 13:12 | CON.ID ---
Consult Consult Specialty:: infectious diseases Referred by:: Reason for Consultation:: abd pain,cough - History of Present Illness Chief Complaint: cough abd pain,sob History of Present Illness: 78 year old male with a significant PMH of COPD , asthma, GERD admitted because of worsening SOB associated with non productive cough. Family at bedside reports pt has been endsoring abdominal pain/swelling and constipation, took Protonix and had a normal BM today, with no improvement of symptoms. The patient denies chest pain, headache and dizziness. Denies fever, chills, nausea, vomiting, diarrhea. Denies dysuria, frequency, urgency and hematuria. says currently he feels much better,but is needing oxygen. coughing still present but no sputum production - History Source History Provided By: Patient, Family Member, Medical Record Limitations to Obtaining History: Language Barrier - Past Medical History Pulmonary: Yes: Bronchitis, COPD, Pneumonia. No: Asthma, Cancer, O2 Dependent, Previously Intubated, Pulmonary Embolus, Pulmonary Fibrosis, Sleep Apnea Gastrointestinal: Yes: GERD - Alcohol/Substance Use Hx Alcohol Use: No - Smoking History Smoking history: Former smoker Have you smoked in the past 12 months: No If you are a former smoker, when did you quit?: 2 months ago Home Medications - Allergies Allergies/Adverse Reactions: Allergies Allergy/AdvReac Type Severity Reaction Status Date / Time No Known Allergies Allergy Verified 03/02/19 12:45 - Home Medications Home Medications: Ambulatory Orders Meclizine HCl [Antivert -] 25 mg PO TID PRN #14 tablet 08/04/13 No Home Medications 0 dose .ROUTE UTDICT 08/04/13 Review of Systems - Review of Systems Constitutional: reports: Weakness Eyes: reports: No Symptoms HENT: reports: No Symptoms Neck: reports: No Symptoms Cardiovascular: reports: No Symptoms Respiratory: reports: Cough, SOB, SOB on Exertion Gastrointestinal: reports: Abdominal Pain Genitourinary: reports: No Symptoms Musculoskeletal: reports: No Symptoms Integumentary: reports: No Symptoms Neurological: reports: No Symptoms Endocrine: reports: No Symptoms Hematology/Lymphatic: reports: No Symptoms Psychiatric: reports: No Symptoms Physical Exam Vital Signs: Vital Signs Temperature 98.4 F 03/03/19 10:00 Pulse Rate 97 H 03/03/19 10:00 Respiratory Rate 20 03/03/19 10:00 Blood Pressure 116/57 L 03/03/19 10:00 O2 Sat by Pulse Oximetry (%) 97 03/02/19 23:46 Constitutional: Yes: No Distress, Calm, Thin, Other (malnourished,failure to thrive) HENT: Yes: Atraumatic, Normocephalic Neck: Yes: Supple, Trachea Midline Cardiovascular: Yes: Regular Rate and Rhythm Respiratory: Yes: Regular, On Nasal O2, Poor Air Entry, Other (crackles) Gastrointestinal: Yes: Normal Bowel Sounds, Soft Musculoskeletal: Yes: WNL Extremities: Yes: WNL Neurological: Yes: Alert, Oriented Psychiatric: Yes: Alert, Oriented Labs: CBC, BMP 03/03/19 07:35 03/03/19 07:35 Imaging - Results Chest X-ray: Report Reviewed, Image Reviewed Cat Scan: Report Reviewed, Image Reviewed Assessment/Plan danica List - Problems (1) COPD (chronic obstructive pulmonary disease) Code(s): J44.9 - CHRONIC OBSTRUCTIVE PULMONARY DISEASE, UNSPECIFIED (2) Smoker Code(s): F17.200 - NICOTINE DEPENDENCE, UNSPECIFIED, UNCOMPLICATED (3) Pulmonary nodules/lesions, multiple Code(s): R91.8 - OTHER NONSPECIFIC ABNORMAL FINDING OF LUNG FIELD (4) Emphysema of lung Code(s): J43.9 - EMPHYSEMA, UNSPECIFIED (5) Shortness of breath Code(s): R06.02 - SHORTNESS OF BREATH (6) Urinary retention Code(s): R33.9 - RETENTION OF URINE, UNSPECIFIED bph i think patient does retain urine which was probably the cause of his abd pain i am not going to start him on abx yet and will wait for the result
--- NOTE | 2019-03-03 13:15 | CON.CARD ---
Consult Consult Specialty:: Cardiology Referred by:: Dr. Martinez Reason for Consultation:: Cardiac evaluation - History of Present Illness Chief Complaint: Shortness of breath and urinary retention History of Present Illness: Patient is a 78 year old male with COPD on nebulizer and GERD who presented with shortness of breath. He presented also with renal failure with elevated Cr to 5.4 with urinary retention. Currently, he feels better after albrecht catheter. He denies chest pain, shortness of breath or palpitations. He denies paroxysmal nocturnal dyspnea or orthopnea. He denies fever or chills. He denies nausea, vomiting, diarrhea or abdominal pain. He denies headache or lightheadedness. - History Source History Provided By: Patient, Family Member, Medical Record Limitations to Obtaining History: Language Barrier - Past Medical History Pulmonary: Yes: Asthma, Bronchitis, COPD, Pneumonia Gastrointestinal: Yes: GERD - Alcohol/Substance Use Hx Alcohol Use: No - Smoking History Smoking history: Current some day smoker Have you smoked in the past 12 months: Yes Home Medications - Allergies Allergies/Adverse Reactions: Allergies Allergy/AdvReac Type Severity Reaction Status Date / Time No Known Allergies Allergy Verified 03/02/19 12:45 - Home Medications Home Medications: Ambulatory Orders Meclizine HCl [Antivert -] 25 mg PO TID PRN #14 tablet 08/04/13 No Home Medications 0 dose .ROUTE UTDICT 08/04/13 Review of Systems - Review of Systems Constitutional: denies: Chills, Fever Cardiovascular: reports: Shortness of Breath. denies: Chest Pain, Palpitations Respiratory: reports: SOB. denies: Cough, Hemoptysis, Orthopnea, Wheezing Gastrointestinal: denies: Abdominal Pain, Constipation, Diarrhea, Melena, Nausea , Rectal Bleeding, Vomiting Genitourinary: denies: Dysuria, Hematuria Neurological: denies: Dizziness, Headache, Seizure, Syncope Vital Signs: Vital Signs Temperature 98.4 F 03/03/19 10:00 Pulse Rate 97 H 03/03/19 10:00 Respiratory Rate 20 03/03/19 10:00 Blood Pressure 116/57 L 03/03/19 10:00 O2 Sat by Pulse Oximetry (%) 97 03/02/19 23:46 Eyes: Yes: PERRL HENT: Yes: Atraumatic Neck: Yes: Supple Respiratory: Yes: Diminished Gastrointestinal: Yes: Normal Bowel Sounds, Soft. No: Tenderness Cardiovascular: Yes: Regular Rate and Rhythm JVD: No PMI: Non-Displaced Heart Sounds: Yes: S1, S2 Edema: No - Other Data Labs, Other Data: CBC, BMP 03/03/19 07:35 03/03/19 07:35 Troponin, BNP 03/02/19 03/02/19 13:45 13:45 Troponin I < 0.02 B-Natriuretic Peptide 327.5 Laboratory Results - last 24 hr 03/02/19 03/02/19 03/02/19 13:45 13:45 13:45 WBC 11.2 H RBC 4.80 Hgb 14.3 Hct 42.8 MCV 89.2 MCH 29.7 MCHC 33.4 RDW 14.6 Plt Count 446 H D MPV 7.5 Absolute Neuts (auto) 9.4 H Neutrophils % 83.7 H Neutrophils % (Manual) Lymphocytes % 4.5 L D Lymphocytes % (Manual) Monocytes % 9.6 D Monocytes % (Manual) Eosinophils % 2.1 Basophils % 0.1 Nucleated RBC % 0 Sodium 131 L Potassium 5.1 Chloride 94 L Carbon Dioxide 24 Anion Gap 13 BUN 147.8 H* Creatinine 5.4 H Est GFR (CKD-EPI)AfAm 10.83 Est GFR (CKD-EPI)NonAf 9.34 Random Glucose 121 H Calcium 9.3 Total Bilirubin 0.3 AST 18 ALT 20 Alkaline Phosphatase 79 Creatine Kinase 297 Creatine Kinase Index 4.8 CK-MB (CK-2) 14.4 H Troponin I < 0.02 B-Natriuretic Peptide 327.5 Total Protein 7.4 Albumin 3.6 Lipase 198 Urine Color Urine Appearance Urine pH Ur Specific [place] Urine Protein Urine Glucose (UA) Urine Ketones Urine Blood Urine Nitrite Urine Bilirubin Urine Urobilinogen Ur Leukocyte Esterase Urine WBC (Auto) Urine RBC (Auto) Urine Casts (Auto) U Epithel Cells (Auto) Urine Bacteria (Auto) 03/02/19 03/03/19 03/03/19 18:30 07:35 07:35 WBC 9.1 RBC 4.03 Hgb 12.1 Hct 35.1 L D MCV 87.2 MCH 29.9 MCHC 34.3 RDW 14.0 Plt Count 329 D MPV 7.2 L Absolute Neuts (auto) 8.7 H Neutrophils % 95.6 H Neutrophils % (Manual) 96.0 H Lymphocytes % 1.9 L D Lymphocytes % (Manual) 2.0 L Monocytes % 2.3 L Monocytes % (Manual) 2 L Eosinophils % 0.0 D Basophils % 0.2 Nucleated RBC % 0 Sodium 137 Potassium 3.9 Chloride 100 Carbon Dioxide 28 Anion Gap 9 BUN 116.1 H* Creatinine 3.6 H Est GFR (CKD-EPI)AfAm 17.68 Est GFR (CKD-EPI)NonAf 15.25 Random Glucose 154 H Calcium 8.0 L Total Bilirubin 0.2 AST 12 L ALT 18 Alkaline Phosphatase 62 Creatine Kinase Creatine Kinase Index CK-MB (CK-2) Troponin I B-Natriuretic Peptide Total Protein 5.7 L Albumin 2.8 L Lipase Urine Color Yellow Urine Appearance Clear Urine pH 5.0 Ur Specific [place] 1.014 Urine Protein Negative Urine Glucose (UA) Negative Urine Ketones Negative Urine Blood 2+ H Urine Nitrite Negative Urine Bilirubin Negative Urine Urobilinogen 0.2 Ur Leukocyte Esterase 2+ H Urine WBC (Auto) 13 Urine RBC (Auto) 4 Urine Casts (Auto) 5 U Epithel Cells (Auto) 1.8 Urine Bacteria (Auto) 0.5 Sinus rhythm with RBBB Imaging - Results Chest X-ray: Report Reviewed (? pneumothorax) Cat Scan: Report Reviewed (Chest CT does not reveal pneumothorax, but with severe COPD Abd CT with distended bladder) EKG: Report Reviewed Problem List - Problems (1) GERD (gastroesophageal reflux disease) Code(s): K21.9 - GASTRO-ESOPHAGEAL REFLUX DISEASE WITHOUT ESOPHAGITIS (2) JEFRY (acute kidney injury) Code(s): N17.9 - ACUTE KIDNEY FAILURE, UNSPECIFIED (3) COPD (chronic obstructive pulmonary disease) Code(s): J44.9 - CHRONIC OBSTRUCTIVE PULMONARY DISEASE, UNSPECIFIED (4) Emphysema of lung Code(s): J43.9 - EMPHYSEMA, UNSPECIFIED (5) Pulmonary nodules/lesions, multiple Code(s): R91.8 - OTHER NONSPECIFIC ABNORMAL FINDING OF LUNG FIELD (6) Shortness of breath Code(s): R06.02 - SHORTNESS OF BREATH (7) Urinary retention Code(s): R33.9 - RETENTION OF URINE, UNSPECIFIED Assessment/Plan 1. Severe COPD with shortness of breath 2. Urinary retention and JEFRY 3. GERD PLAN: 1. Continue management per Pulmonary for COPD and Urology for distended bladder and urinary retention 2. Echocardiography can be done to assess LV/RV and valvular function 3. No specific cardiac therapy is warranted at this time 4. DVT prophylaxis Raheem Alexis MD
[2019-03-03] MEDS: predniSONE 20 MG TABLET (UD) PO SCH (13:37)
--- NOTE | 2019-03-03 16:28 | PN ---
Teaching Attending Note Name of Resident: Darrian Garcia (Nephrology) ATTENDING PHYSICIAN STATEMENT I saw and evaluated the patient. I reviewed the resident's note and discussed the case with the resident. I agree with the resident's findings and plan as documented. Renal Pt is a 78 year old make with pmhx of copd asthma and gerd who presents to the er with lethargy. He wass found to be in acute renal failure. On further imaging he was found to be in retention. Albrecht was placed and renal function is improving. pmhx copd asthma gerd nkda ros dyspnea on exertion family hx non contrib Current Medications Generic Name Dose Route Start Last Admin Trade Name Freq PRN Reason Stop Dose Admin Acetaminophen 650 mg 03/02/19 20:31 Tylenol - PO Q6H PRN FEVER Albuterol/Ipratropium 1 amp 03/02/19 20:31 03/03/19 03:22 Duoneb - NEB 1 amp Q4H PRN Administration SHORTNESS OF BREATH Heparin Sodium (Porcine) 5,000 unit 03/02/19 22:00 03/03/19 10:45 Heparin - SQ 5,000 unit BID ENMA Administration Sodium Chloride 1,000 mls @ 75 mls/hr 03/02/19 23:00 03/03/19 00:06 Normal Saline - IV 75 mls/hr ASDIR ENMA Administration Prednisone 40 mg 03/03/19 12:00 03/03/19 13:37 Deltasone - PO 40 mg DAILY ENMA Administration Laboratory Tests 03/02/19 03/02/19 03/02/19 13:45 13:45 18:30 WBC 11.2 H Sodium Potassium BUN 147.8 H* Creatinine 5.4 H Urine Protein Negative Urine Blood 2+ H 03/03/19 03/03/19 07:35 07:35 WBC 9.1 Sodium 137 Potassium 3.9 BUN 116.1 H* Creatinine 3.6 H Urine Protein Urine Blood Last Vital Signs Temp Pulse Resp BP Pulse Ox 98.0 F 100 H 20 133/62 97 03/03/19 14:00 03/03/19 14:00 03/03/19 14:00 03/03/19 14:00 03/02/19 23:46 cardio s1s2 pulm clear gi soft gu albrecht ext neg edema neuro awake and alert Impression 1. JEFRY 2. hydronephrosis 3. obstructive uropathy 4. copd 5. asthma Plan - renal function is improving - cont fluids - monitor for post obstructive diuresis - repeat labs in am - urology evaluation
--- NOTE | 2019-03-03 18:10 | PN ---
Progress Note, Physician - Current Medication List Current Medications: Active Medications Acetaminophen (Tylenol -) 650 mg PO Q6H PRN PRN Reason: FEVER Albuterol/Ipratropium (Duoneb -) 1 amp NEB Q4H PRN PRN Reason: SHORTNESS OF BREATH Last Admin: 03/03/19 03:22 Dose: 1 amp Heparin Sodium (Porcine) (Heparin -) 5,000 unit SQ BID [facility] Last Admin: 03/03/19 10:45 Dose: 5,000 unit Sodium Chloride (Normal Saline -) 1,000 mls @ 75 mls/hr IV ASDIR [facility] Last Admin: 03/03/19 00:06 Dose: 75 mls/hr Prednisone (Deltasone -) 40 mg PO DAILY [facility] Last Admin: 03/03/19 13:37 Dose: 40 mg - Objective Vital Signs: Vital Signs Temperature 98.0 F 03/03/19 14:00 Pulse Rate 100 H 03/03/19 14:00 Respiratory Rate 20 03/03/19 14:00 Blood Pressure 133/62 03/03/19 14:00 O2 Sat by Pulse Oximetry (%) 97 03/02/19 23:46 Constitutional: Yes: No Distress HENT: Yes: Atraumatic Neck: Yes: Supple Cardiovascular: Yes: Regular Rate and Rhythm Respiratory: Yes: CTA Bilaterally Gastrointestinal: Yes: Normal Bowel Sounds Extremities: Yes: WNL Edema: No Neurological: Yes: Alert, Oriented Labs: CBC, BMP 03/03/19 07:35 03/03/19 07:35 Problem List - Problems (1) JEFRY (acute kidney injury) Assessment/Plan: ivf renal on board Code(s): N17.9 - ACUTE KIDNEY FAILURE, UNSPECIFIED (2) COPD exacerbation Code(s): J44.1 - CHRONIC OBSTRUCTIVE PULMONARY DISEASE W (ACUTE) EXACERBATION (3) Shortness of breath Code(s): R06.02 - SHORTNESS OF BREATH (4) Urinary retention Code(s): R33.9 - RETENTION OF URINE, UNSPECIFIED
[2019-03-04] MEDS: SODIUM CHLORIDE 1,000 ML IV SCH (09:00)
[2019-03-04 11:38] LABS: ALBUMIN 2.6 g/dl (3.4-5.0); BILIRUBIN,TOTAL 0.2 mg/dL (0.2-1); BLOOD UREA NITROGEN 56.2 mg/dL (7-18); CALCIUM 7.3 mg/dL (8.5-10.1); CREATININE 1.9 mg/dL (0.55-1.3); POTASSIUM 3.8 mmol/L (3.5-5.1); TOT PROT 5.6 g/dl (6.4-8.2)
[2019-03-04] MEDS: predniSONE 20 MG TABLET (UD) PO SCH (11:40)
[2019-03-04] MEDS: TAMSULOSIN HCL 0.4 MG CAP PO SCH (11:40)
[2019-03-04] MEDS: HEPARIN NA (PORCINE) 5,000 UNITS/ML 1ML VIAL SQ SCH ×2 (11:40→22:32)
--- NOTE | 2019-03-04 12:58 | PN ---
Progress Note, Physician History of Present Illness: stable no new issues - Current Medication List Current Medications: Active Medications Acetaminophen (Tylenol -) 650 mg PO Q6H PRN PRN Reason: FEVER Albuterol/Ipratropium (Duoneb -) 1 amp NEB Q4H PRN PRN Reason: SHORTNESS OF BREATH Last Admin: 03/03/19 03:22 Dose: 1 amp Heparin Sodium (Porcine) (Heparin -) 5,000 unit SQ BID [facility] Last Admin: 03/04/19 11:40 Dose: 5,000 unit Sodium Chloride (Normal Saline -) 1,000 mls @ 75 mls/hr IV ASDIR [facility] Last Admin: 03/04/19 09:00 Dose: 75 mls/hr Prednisone (Deltasone -) 40 mg PO DAILY [facility] Last Admin: 03/04/19 11:40 Dose: 40 mg Tamsulosin HCl (Flomax -) 0.4 mg PO DAILY@0830 [facility] Last Admin: 03/04/19 11:40 Dose: 0.4 mg - Objective Vital Signs: Vital Signs Temperature 98.3 F 03/04/19 11:50 Pulse Rate 80 03/04/19 11:50 Respiratory Rate 20 03/04/19 11:50 Blood Pressure 144/74 03/04/19 11:50 O2 Sat by Pulse Oximetry (%) 97 03/02/19 23:46 Constitutional: Yes: No Distress, Calm Cardiovascular: Yes: S1, S2 Respiratory: Yes: Regular, CTA Bilaterally Gastrointestinal: Yes: Normal Bowel Sounds, Soft Labs: CBC, BMP 03/03/19 07:35 03/04/19 10:38 Assessment/Plan [facility] List - Problems (1) COPD (chronic obstructive pulmonary disease) Code(s): J44.9 - CHRONIC OBSTRUCTIVE PULMONARY DISEASE, UNSPECIFIED (2) Smoker Code(s): F17.200 - NICOTINE DEPENDENCE, UNSPECIFIED, UNCOMPLICATED (3) Pulmonary nodules/lesions, multiple Code(s): R91.8 - OTHER NONSPECIFIC ABNORMAL FINDING OF LUNG FIELD (4) Emphysema of lung Code(s): J43.9 - EMPHYSEMA, UNSPECIFIED (5) Shortness of breath Code(s): R06.02 - SHORTNESS OF BREATH (6) Urinary retention Code(s): R33.9 - RETENTION OF URINE, UNSPECIFIED bph plan continue current mgmt monitor
--- NOTE | 2019-03-04 13:32 | PN ---
Progress Note, Physician History of Present Illness: Pt seen and examined at bedside. He is awake and alert. He denies shortness of breath. - Current Medication List Current Medications: Active Medications Acetaminophen (Tylenol -) 650 mg PO Q6H PRN PRN Reason: FEVER Albuterol/Ipratropium (Duoneb -) 1 amp NEB Q4H PRN PRN Reason: SHORTNESS OF BREATH Last Admin: 03/03/19 03:22 Dose: 1 amp Heparin Sodium (Porcine) (Heparin -) 5,000 unit SQ BID [facility] Last Admin: 03/04/19 11:40 Dose: 5,000 unit Sodium Chloride (Normal Saline -) 1,000 mls @ 75 mls/hr IV ASDIR [facility] Last Admin: 03/04/19 09:00 Dose: 75 mls/hr Prednisone (Deltasone -) 40 mg PO DAILY [facility] Last Admin: 03/04/19 11:40 Dose: 40 mg Tamsulosin HCl (Flomax -) 0.4 mg PO DAILY@0830 [facility] Last Admin: 03/04/19 11:40 Dose: 0.4 mg - Objective Vital Signs: Vital Signs Temperature 98.3 F 03/04/19 11:50 Pulse Rate 80 03/04/19 11:50 Respiratory Rate 20 03/04/19 11:50 Blood Pressure 144/74 03/04/19 11:50 O2 Sat by Pulse Oximetry (%) 97 03/02/19 23:46 Constitutional: Yes: Calm Eyes: Yes: Conjunctiva Clear HENT: Yes: Atraumatic Neck: Yes: Supple Cardiovascular: Yes: S1, S2 Respiratory: Yes: CTA Bilaterally Gastrointestinal: Yes: Soft Genitourinary: Yes: Kim Present Edema: No Neurological: Yes: Oriented Psychiatric: Yes: Oriented Labs: CBC, BMP 03/03/19 07:35 03/04/19 10:38 Assessment/Plan Current Medications Generic Name Dose Route Start Last Admin Trade Name Freq PRN Reason Stop Dose Admin Acetaminophen 650 mg 03/02/19 20:31 Tylenol - PO Q6H PRN FEVER Albuterol/Ipratropium 1 amp 03/02/19 20:31 03/03/19 03:22 Duoneb - NEB 1 amp Q4H PRN Administration SHORTNESS OF BREATH Heparin Sodium (Porcine) 5,000 unit 03/02/19 22:00 03/04/19 11:40 Heparin - SQ 5,000 unit BID [facility] Administration Sodium Chloride 1,000 mls @ 75 mls/hr 03/02/19 23:00 03/04/19 09:00 Normal Saline - IV 75 mls/hr ASDIR [facility] Administration Prednisone 40 mg 03/03/19 12:00 03/04/19 11:40 Deltasone - PO 40 mg DAILY [facility] Administration Tamsulosin HCl 0.4 mg 03/04/19 09:45 03/04/19 11:40 Flomax - PO 0.4 mg DAILY@0830 [facility] Administration Impression 1. JEFRY 2. hydronephrosis 3. obstructive uropathy 4. copd 5. asthma Plan - renal function is improving - change fluids to 1/2ns - repeat labs in am - monitor for post obstructive diuresis - repeat labs in am - urology evaluation
--- NOTE | 2019-03-04 13:59 | PN ---
Progress Note, Physician History of Present Illness: PULMONARY ALERT,FEELING BETTER,LESS DYSPNEIC - Current Medication List Current Medications: Active Medications Acetaminophen (Tylenol -) 650 mg PO Q6H PRN PRN Reason: FEVER Albuterol/Ipratropium (Duoneb -) 1 amp NEB Q4H PRN PRN Reason: SHORTNESS OF BREATH Last Admin: 03/03/19 03:22 Dose: 1 amp Heparin Sodium (Porcine) (Heparin -) 5,000 unit SQ BID [facility] Last Admin: 03/04/19 11:40 Dose: 5,000 unit Sodium Chloride (1/2 Normal Saline) 1,000 mls @ 75 mls/hr IV ASDIR [facility] Prednisone (Deltasone -) 40 mg PO DAILY [facility] Last Admin: 03/04/19 11:40 Dose: 40 mg Tamsulosin HCl (Flomax -) 0.4 mg PO DAILY@0830 [facility] Last Admin: 03/04/19 11:40 Dose: 0.4 mg - Objective Vital Signs: Vital Signs Temperature 98.3 F 03/04/19 11:50 Pulse Rate 80 03/04/19 11:50 Respiratory Rate 20 03/04/19 11:50 Blood Pressure 144/74 03/04/19 11:50 O2 Sat by Pulse Oximetry (%) 97 03/02/19 23:46 Constitutional: Yes: Calm, Thin, Other (MILDLY TACHYPNEIC) Eyes: Yes: WNL HENT: Yes: WNL Neck: Yes: WNL Cardiovascular: Yes: Regular Rate and Rhythm, S1, S2 Respiratory: Yes: Diminished Gastrointestinal: Yes: Normal Bowel Sounds, Soft Extremities: Yes: WNL Edema: No Labs: CBC, BMP 03/03/19 07:35 03/04/19 10:38 Assessment/Plan Problem List - Problems (1) COPD (chronic obstructive pulmonary disease) Code(s): J44.9 - CHRONIC OBSTRUCTIVE PULMONARY DISEASE, UNSPECIFIED (2) Smoker Code(s): F17.200 - NICOTINE DEPENDENCE, UNSPECIFIED, UNCOMPLICATED (3) Pulmonary nodules/lesions, multiple Code(s): R91.8 - OTHER NONSPECIFIC ABNORMAL FINDING OF LUNG FIELD (4) Emphysema of lung Code(s): J43.9 - EMPHYSEMA, UNSPECIFIED (5) Shortness of breath Code(s): R06.02 - SHORTNESS OF BREATH (6) Urinary retention Code(s): R33.9 - RETENTION OF URINE, UNSPECIFIED 7 JEFRY Assessment/Plan Prednisone OD No smoking counseled Can be discharged on LAMA/LABA BD [place] PRN Outpatient PFTs Yearly LDCT screening Monitor lytes,renal function DR PENA
--- NOTE | 2019-03-04 14:48 | PN ---
Progress Note, Physician History of Present Illness: Dyspnea resolved, albrecht draining clear urine. - Current Medication List Current Medications: Active Medications Acetaminophen (Tylenol -) 650 mg PO Q6H PRN PRN Reason: FEVER Albuterol/Ipratropium (Duoneb -) 1 amp NEB Q4H PRN PRN Reason: SHORTNESS OF BREATH Last Admin: 03/03/19 03:22 Dose: 1 amp Heparin Sodium (Porcine) (Heparin -) 5,000 unit SQ BID [facility] Last Admin: 03/04/19 11:40 Dose: 5,000 unit Sodium Chloride (1/2 Normal Saline) 1,000 mls @ 75 mls/hr IV ASDIR [facility] Prednisone (Deltasone -) 40 mg PO DAILY [facility] Last Admin: 03/04/19 11:40 Dose: 40 mg Tamsulosin HCl (Flomax -) 0.4 mg PO DAILY@0830 [facility] Last Admin: 03/04/19 11:40 Dose: 0.4 mg - Objective Vital Signs: Vital Signs Temperature 98.3 F 03/04/19 11:50 Pulse Rate 80 03/04/19 11:50 Respiratory Rate 20 03/04/19 11:50 Blood Pressure 144/74 03/04/19 11:50 O2 Sat by Pulse Oximetry (%) 97 03/02/19 23:46 Constitutional: Yes: No Distress, Calm, Thin Neck: Yes: Supple Cardiovascular: Yes: Regular Rate and Rhythm Respiratory: Yes: Regular, CTA Bilaterally Gastrointestinal: Yes: Normal Bowel Sounds, Soft Genitourinary: Yes: Albrecht Present Edema: No Labs: CBC, BMP 03/03/19 07:35 03/04/19 10:38 Problem List - Problems (1) Obstructive uropathy Code(s): N13.9 - OBSTRUCTIVE AND REFLUX UROPATHY, UNSPECIFIED (2) JEFRY (acute kidney injury) Code(s): N17.9 - ACUTE KIDNEY FAILURE, UNSPECIFIED (3) COPD (chronic obstructive pulmonary disease) Code(s): J44.9 - CHRONIC OBSTRUCTIVE PULMONARY DISEASE, UNSPECIFIED Qualifiers: COPD type: unspecified COPD Qualified Code(s): J44.9 - Chronic obstructive pulmonary disease, unspecified (4) Urinary retention Code(s): R33.9 - RETENTION OF URINE, UNSPECIFIED Assessment/Plan 1. Severe COPD with shortness of breath improving 2. JEFRY with bilateral hydronephrosis and obstructive uropathy resolving 3. GERD PLAN: 1. BD, O2, oral steroids, albrecht drainage and monitor renal recovery 2. Echocardiography can be done to assess LV/RV and valvular function 3. No specific cardiac therapy is warranted at this time 4. DVT prophylaxis
--- NOTE | 2019-03-04 15:46 | PN ---
Progress Note, Physician - Current Medication List Current Medications: Active Medications Acetaminophen (Tylenol -) 650 mg PO Q6H PRN PRN Reason: FEVER Albuterol/Ipratropium (Duoneb -) 1 amp NEB Q4H PRN PRN Reason: SHORTNESS OF BREATH Last Admin: 03/03/19 03:22 Dose: 1 amp Heparin Sodium (Porcine) (Heparin -) 5,000 unit SQ BID [facility] Last Admin: 03/04/19 11:40 Dose: 5,000 unit Sodium Chloride (1/2 Normal Saline) 1,000 mls @ 75 mls/hr IV ASDIR [facility] Prednisone (Deltasone -) 40 mg PO DAILY [facility] Last Admin: 03/04/19 11:40 Dose: 40 mg Tamsulosin HCl (Flomax -) 0.4 mg PO DAILY@0830 [facility] Last Admin: 03/04/19 11:40 Dose: 0.4 mg - Objective Vital Signs: Vital Signs Temperature 98.3 F 03/04/19 11:50 Pulse Rate 80 03/04/19 11:50 Respiratory Rate 20 03/04/19 11:50 Blood Pressure 144/74 03/04/19 11:50 O2 Sat by Pulse Oximetry (%) 97 03/02/19 23:46 Constitutional: Yes: No Distress HENT: Yes: Atraumatic Neck: Yes: Supple Cardiovascular: Yes: Regular Rate and Rhythm Respiratory: Yes: CTA Bilaterally Gastrointestinal: Yes: Normal Bowel Sounds Extremities: Yes: WNL Neurological: Yes: Alert, Oriented Labs: CBC, BMP 03/03/19 07:35 03/04/19 10:38 Problem List - Problems (1) JEFRY (acute kidney injury) Assessment/Plan: ivf monitor Code(s): N17.9 - ACUTE KIDNEY FAILURE, UNSPECIFIED (2) COPD exacerbation Assessment/Plan: steroids duo nebs Code(s): J44.1 - CHRONIC OBSTRUCTIVE PULMONARY DISEASE W (ACUTE) EXACERBATION (3) Shortness of breath Code(s): R06.02 - SHORTNESS OF BREATH (4) Urinary retention Assessment/Plan: on flomax Code(s): R33.9 - RETENTION OF URINE, UNSPECIFIED
[2019-03-04] MEDS: SODIUM CHLORIDE 0.45% 1,000 ML IV SCH (17:42)
[2019-03-04] MEDS: ALBUTEROL SO4 2.5/IPRATROPIUM 0.5 INH SOL 3 ML VIAL.NEB. NEB PRN (17:43)
[2019-03-05] MEDS: SODIUM CHLORIDE 0.45% 1,000 ML IV SCH (06:25)
--- NOTE | 2019-03-05 09:31 | PN ---
Progress Note, Physician History of Present Illness: still with lot of cough refusing to eat anything - Current Medication List Current Medications: Active Medications Acetaminophen (Tylenol -) 650 mg PO Q6H PRN PRN Reason: FEVER Albuterol/Ipratropium (Duoneb -) 1 amp NEB Q4H PRN PRN Reason: SHORTNESS OF BREATH Last Admin: 03/04/19 17:43 Dose: 1 amp Heparin Sodium (Porcine) (Heparin -) 5,000 unit SQ BID [facility] Last Admin: 03/04/19 22:32 Dose: 5,000 unit Sodium Chloride (1/2 Normal Saline) 1,000 mls @ 75 mls/hr IV ASDIR [facility] Last Admin: 03/05/19 06:25 Dose: 75 mls/hr Prednisone (Deltasone -) 40 mg PO DAILY [facility] Last Admin: 03/04/19 11:40 Dose: 40 mg Tamsulosin HCl (Flomax -) 0.4 mg PO DAILY@0830 [facility] Last Admin: 03/04/19 11:40 Dose: 0.4 mg - Objective Vital Signs: Vital Signs Temperature 98.8 F 03/05/19 06:00 Pulse Rate 80 03/05/19 06:00 Respiratory Rate 20 03/05/19 06:00 Blood Pressure 126/72 03/05/19 06:00 O2 Sat by Pulse Oximetry (%) 97 03/04/19 21:00 Constitutional: Yes: No Distress, Calm, Thin Cardiovascular: Yes: S1, S2 Respiratory: Yes: Regular, Poor Air Entry Gastrointestinal: Yes: Normal Bowel Sounds, Soft Musculoskeletal: Yes: WNL Extremities: Yes: WNL Neurological: Yes: Alert, Oriented Psychiatric: Yes: Alert, Oriented Labs: CBC, BMP 03/03/19 07:35 03/04/19 10:38 Assessment/Plan [facility] List - Problems (1) COPD (chronic obstructive pulmonary disease) Code(s): J44.9 - CHRONIC OBSTRUCTIVE PULMONARY DISEASE, UNSPECIFIED (2) Smoker Code(s): F17.200 - NICOTINE DEPENDENCE, UNSPECIFIED, UNCOMPLICATED (3) Pulmonary nodules/lesions, multiple Code(s): R91.8 - OTHER NONSPECIFIC ABNORMAL FINDING OF LUNG FIELD (4) Emphysema of lung Code(s): J43.9 - EMPHYSEMA, UNSPECIFIED (5) Shortness of breath Code(s): R06.02 - SHORTNESS OF BREATH (6) Urinary retention Code(s): R33.9 - RETENTION OF URINE, UNSPECIFIED bph plan continue current mgmt monitor
--- NOTE | 2019-03-05 10:24 | PN ---
Progress Note (short form) - Note Progress Note: NAD on RA. Reports breathing is better. Some dry cough. Intake & Output 03/02/19 03/03/19 03/04/19 03/05/19 23:59 23:59 23:59 23:59 Intake Total 250 1350 1700 900 Output Total 6700 3350 3100 700 Balance -6450 -2000 -1400 200 Weight 120 lb Last Vital Signs Temp Pulse Resp BP Pulse Ox 98.8 F 80 20 126/72 97 03/05/19 06:00 03/05/19 06:00 03/05/19 06:00 03/05/19 06:00 03/04/19 21:00 Active Medications Acetaminophen (Tylenol -) 650 mg PO Q6H PRN PRN Reason: FEVER Albuterol/Ipratropium (Duoneb -) 1 amp NEB Q4H PRN PRN Reason: SHORTNESS OF BREATH Last Admin: 03/04/19 17:43 Dose: 1 amp Heparin Sodium (Porcine) (Heparin -) 5,000 unit SQ BID [facility] Last Admin: 03/04/19 22:32 Dose: 5,000 unit Sodium Chloride (1/2 Normal Saline) 1,000 mls @ 75 mls/hr IV ASDIR [facility] Last Admin: 03/05/19 06:25 Dose: 75 mls/hr Prednisone (Deltasone -) 40 mg PO DAILY [facility] Last Admin: 03/04/19 11:40 Dose: 40 mg Tamsulosin HCl (Flomax -) 0.4 mg PO DAILY@0830 [facility] Last Admin: 03/04/19 11:40 Dose: 0.4 mg Constitutional: Yes: NAD, Thin Eyes: Yes: WNL HENT: Yes: WNL Neck: Yes: WNL Cardiovascular: Yes: Regular Rate and Rhythm, S1, S2 Respiratory: Yes: Diminished, no wheezing Gastrointestinal: Yes: Normal Bowel Sounds, Soft Extremities: Yes: WNL Edema: No Labs: Laboratory Results - last 24 hr 03/04/19 10:38 Sodium 143 Potassium 3.8 Chloride 105 Carbon Dioxide 32 Anion Gap 6 L BUN 56.2 H Creatinine 1.9 H Est GFR (CKD-EPI)AfAm 38.28 Est GFR (CKD-EPI)NonAf 33.03 Random Glucose 195 H Calcium 7.3 L Total Bilirubin 0.2 AST 17 ALT 20 Alkaline Phosphatase 62 Total Protein 5.6 L Albumin 2.6 L Assessment/Plan Problem List - Problems (1) COPD (chronic obstructive pulmonary disease) Code(s): J44.9 - CHRONIC OBSTRUCTIVE PULMONARY DISEASE, UNSPECIFIED (2) Smoker Code(s): F17.200 - NICOTINE DEPENDENCE, UNSPECIFIED, UNCOMPLICATED (3) Pulmonary nodules/lesions, multiple Code(s): R91.8 - OTHER NONSPECIFIC ABNORMAL FINDING OF LUNG FIELD (4) Emphysema of lung Code(s): J43.9 - EMPHYSEMA, UNSPECIFIED (5) Shortness of breath Code(s): R06.02 - SHORTNESS OF BREATH (6) Urinary retention Code(s): R33.9 - RETENTION OF URINE, UNSPECIFIED 7 JEFRY Assessment/Plan Prednisone OD No smoking counseled Can be discharged on LAMA/LABA BD [place] PRN Outpatient PFTs Yearly LDCT screening Dr Madsen Problem List - Problems (1) COPD (chronic obstructive pulmonary disease) Code(s): J44.9 - CHRONIC OBSTRUCTIVE PULMONARY DISEASE, UNSPECIFIED Qualifiers: COPD type: unspecified COPD Qualified Code(s): J44.9 - Chronic obstructive pulmonary disease, unspecified (2) Smoker Code(s): F17.200 - NICOTINE DEPENDENCE, UNSPECIFIED, UNCOMPLICATED (3) Pulmonary nodules/lesions, multiple Code(s): R91.8 - OTHER NONSPECIFIC ABNORMAL FINDING OF LUNG FIELD (4) Emphysema of lung Code(s): J43.9 - EMPHYSEMA, UNSPECIFIED (5) Shortness of breath Code(s): R06.02 - SHORTNESS OF BREATH (6) Urinary retention Code(s): R33.9 - RETENTION OF URINE, UNSPECIFIED
--- NOTE | 2019-03-05 10:41 | PN ---
Progress Note, Physician History of Present Illness: Dyspnea resolved, albrecht draining clear urine. - Current Medication List Current Medications: Active Medications Acetaminophen (Tylenol -) 650 mg PO Q6H PRN PRN Reason: FEVER Albuterol/Ipratropium (Duoneb -) 1 amp NEB Q4H PRN PRN Reason: SHORTNESS OF BREATH Last Admin: 03/04/19 17:43 Dose: 1 amp Heparin Sodium (Porcine) (Heparin -) 5,000 unit SQ BID [facility] Last Admin: 03/04/19 22:32 Dose: 5,000 unit Sodium Chloride (1/2 Normal Saline) 1,000 mls @ 75 mls/hr IV ASDIR [facility] Last Admin: 03/05/19 06:25 Dose: 75 mls/hr Prednisone (Deltasone -) 40 mg PO DAILY [facility] Last Admin: 03/04/19 11:40 Dose: 40 mg Tamsulosin HCl (Flomax -) 0.4 mg PO DAILY@0830 [facility] Last Admin: 03/04/19 11:40 Dose: 0.4 mg - Objective Vital Signs: Vital Signs Temperature 98.8 F 03/05/19 06:00 Pulse Rate 80 03/05/19 06:00 Respiratory Rate 20 03/05/19 06:00 Blood Pressure 126/72 03/05/19 06:00 O2 Sat by Pulse Oximetry (%) 97 03/04/19 21:00 Constitutional: Yes: No Distress, Calm, Thin Neck: Yes: Supple Cardiovascular: Yes: Regular Rate and Rhythm Respiratory: Yes: Regular, Diminished Gastrointestinal: Yes: Normal Bowel Sounds, Soft Genitourinary: Yes: Albrecht Present Edema: No Labs: CBC, BMP 03/03/19 07:35 03/04/19 10:38 Problem List - Problems (1) Obstructive uropathy Code(s): N13.9 - OBSTRUCTIVE AND REFLUX UROPATHY, UNSPECIFIED (2) JEFRY (acute kidney injury) Code(s): N17.9 - ACUTE KIDNEY FAILURE, UNSPECIFIED (3) COPD (chronic obstructive pulmonary disease) Code(s): J44.9 - CHRONIC OBSTRUCTIVE PULMONARY DISEASE, UNSPECIFIED Qualifiers: COPD type: unspecified COPD Qualified Code(s): J44.9 - Chronic obstructive pulmonary disease, unspecified (4) Urinary retention Code(s): R33.9 - RETENTION OF URINE, UNSPECIFIED Assessment/Plan 1. Severe COPD with shortness of breath improving 2. JEFRY with bilateral hydronephrosis and obstructive uropathy resolving 3. GERD PLAN: 1. BD, O2, oral steroids, flomax, albrecht drainage and monitor renal recovery 2. Echocardiography can be done to assess LV/RV and valvular function 3. No specific cardiac therapy is warranted at this time 4. DVT prophylaxis
--- NOTE | 2019-03-05 10:50 | PN ---
Progress Note, Physician - Current Medication List Current Medications: Active Medications Acetaminophen (Tylenol -) 650 mg PO Q6H PRN PRN Reason: FEVER Albuterol/Ipratropium (Duoneb -) 1 amp NEB Q4H PRN PRN Reason: SHORTNESS OF BREATH Last Admin: 03/04/19 17:43 Dose: 1 amp Heparin Sodium (Porcine) (Heparin -) 5,000 unit SQ BID [facility] Last Admin: 03/04/19 22:32 Dose: 5,000 unit Sodium Chloride (1/2 Normal Saline) 1,000 mls @ 75 mls/hr IV ASDIR [facility] Last Admin: 03/05/19 06:25 Dose: 75 mls/hr Prednisone (Deltasone -) 40 mg PO DAILY [facility] Last Admin: 03/04/19 11:40 Dose: 40 mg Tamsulosin HCl (Flomax -) 0.4 mg PO DAILY@0830 [facility] Last Admin: 03/04/19 11:40 Dose: 0.4 mg - Objective Vital Signs: Vital Signs Temperature 98.8 F 03/05/19 06:00 Pulse Rate 80 03/05/19 06:00 Respiratory Rate 20 03/05/19 06:00 Blood Pressure 126/72 03/05/19 06:00 O2 Sat by Pulse Oximetry (%) 97 03/04/19 21:00 Constitutional: Yes: No Distress HENT: Yes: Atraumatic Neck: Yes: Supple Cardiovascular: Yes: Regular Rate and Rhythm Respiratory: Yes: CTA Bilaterally Gastrointestinal: Yes: Normal Bowel Sounds Extremities: Yes: WNL Labs: CBC, BMP 03/03/19 07:35 03/04/19 10:38 Problem List - Problems (1) JEFRY (acute kidney injury) Assessment/Plan: ivf monitor cr improving Code(s): N17.9 - ACUTE KIDNEY FAILURE, UNSPECIFIED (2) COPD exacerbation Assessment/Plan: steroids duo nebs Code(s): J44.1 - CHRONIC OBSTRUCTIVE PULMONARY DISEASE W (ACUTE) EXACERBATION (3) Shortness of breath Code(s): R06.02 - SHORTNESS OF BREATH (4) Urinary retention Assessment/Plan: on flomax Code(s): R33.9 - RETENTION OF URINE, UNSPECIFIED
[2019-03-05] MEDS: predniSONE 20 MG TABLET (UD) PO SCH (12:04)
[2019-03-05] MEDS: TAMSULOSIN HCL 0.4 MG CAP PO SCH (12:04)
[2019-03-05] MEDS: HEPARIN NA (PORCINE) 5,000 UNITS/ML 1ML VIAL SQ SCH ×2 (12:04→21:56)
[2019-03-05 12:42] LABS: ALBUMIN 2.8 g/dl (3.4-5.0); BILIRUBIN,TOTAL 0.2 mg/dL (0.2-1); BLOOD UREA NITROGEN 30.2 mg/dL (7-18); CALCIUM 7.4 mg/dL (8.5-10.1); CREATININE 1.4 mg/dL (0.55-1.3); POTASSIUM 3.6 mmol/L (3.5-5.1); TOT PROT 5.7 g/dl (6.4-8.2)
--- NOTE | 2019-03-05 16:15 | PN ---
Progress Note, Physician History of Present Illness: Pt seen and examined at bedside. He is awake and alert. He pulled out his IV. He is tolerating diet. - Current Medication List Current Medications: Active Medications Acetaminophen (Tylenol -) 650 mg PO Q6H PRN PRN Reason: FEVER Albuterol/Ipratropium (Duoneb -) 1 amp NEB Q4H PRN PRN Reason: SHORTNESS OF BREATH Last Admin: 03/04/19 17:43 Dose: 1 amp Heparin Sodium (Porcine) (Heparin -) 5,000 unit SQ BID [facility] Last Admin: 03/05/19 12:04 Dose: 5,000 unit Sodium Chloride (1/2 Normal Saline) 1,000 mls @ 75 mls/hr IV ASDIR [facility] Last Admin: 03/05/19 06:25 Dose: 75 mls/hr Prednisone (Deltasone -) 40 mg PO DAILY [facility] Last Admin: 03/05/19 12:04 Dose: 40 mg Tamsulosin HCl (Flomax -) 0.4 mg PO DAILY@0830 [facility] Last Admin: 03/05/19 12:04 Dose: 0.4 mg - Objective Vital Signs: Vital Signs Temperature 99.0 F 03/05/19 14:00 Pulse Rate 76 03/05/19 14:00 Respiratory Rate 20 03/05/19 14:00 Blood Pressure 128/67 03/05/19 14:00 O2 Sat by Pulse Oximetry (%) 98 03/05/19 09:00 Constitutional: Yes: Calm Eyes: Yes: Conjunctiva Clear HENT: Yes: Atraumatic Cardiovascular: Yes: S1, S2 Respiratory: Yes: CTA Bilaterally Gastrointestinal: Yes: Normal Bowel Sounds, Soft Genitourinary: Yes: Kim Present Musculoskeletal: Yes: WNL Edema: No Integumentary: Yes: WNL Neurological: Yes: Oriented Psychiatric: Yes: Oriented Labs: CBC, BMP 03/03/19 07:35 03/05/19 11:30 Assessment/Plan Current Medications Generic Name Dose Route Start Last Admin Trade Name Freq PRN Reason Stop Dose Admin Acetaminophen 650 mg 03/02/19 20:31 Tylenol - PO Q6H PRN FEVER Albuterol/Ipratropium 1 amp 03/02/19 20:31 03/04/19 17:43 Duoneb - NEB 1 amp Q4H PRN Administration SHORTNESS OF BREATH Heparin Sodium (Porcine) 5,000 unit 03/02/19 22:00 03/05/19 12:04 Heparin - SQ 5,000 unit BID [facility] Administration Sodium Chloride 1,000 mls @ 75 mls/hr 03/04/19 13:45 03/05/19 06:25 1/2 Normal Saline IV 75 mls/hr [facility] Administration Prednisone 40 mg 03/03/19 12:00 03/05/19 12:04 Deltasone - PO 40 mg DAILY [facility] Administration Tamsulosin HCl 0.4 mg 03/04/19 09:45 03/05/19 12:04 Flomax - PO 0.4 mg DAILY@0830 [facility] Administration Impression 1. JEFRY 2. hydronephrosis 3. obstructive uropathy 4. copd 5. asthma Plan - renal function improving - repeat labs in am - pt not on fluids as he pulled IV - can decrease rate of fluids - repaet labs in am - urology evaluation
[2019-03-05] MEDS ORDERED: ALBUTEROL SO4 0.083% IH SOL 2.5 MG/3 ML VIAL.NEB. NEB PRN (18:00)
--- NOTE | 2019-03-06 08:17 | CONSULT ---
Consult - text type - Consultation Consultation Note: CC: urinary retention with acute renal failure HPI: Patient with normalized renal function s/p urinary retention with prostatic enlargement PE vss;afeb abd- no CVAT bilaterally; no palpable bladder albrecht draining clear urnie imp bph s/p urinary retention with acute renal failure plan maintain flomax cleared for d/c home on flomax 0.4 mg daily with albrecht will follow-up as outpatient discussed with daughter and patient
[2019-03-06] MEDS: predniSONE 20 MG TABLET (UD) PO SCH (09:15)
[2019-03-06] MEDS: TAMSULOSIN HCL 0.4 MG CAP PO SCH (09:15)
[2019-03-06] MEDS: HEPARIN NA (PORCINE) 5,000 UNITS/ML 1ML VIAL SQ SCH (09:17)
--- NOTE | 2019-03-06 09:20 | PN ---
Progress Note, Physician History of Present Illness: stable no new issues - Current Medication List Current Medications: Active Medications Acetaminophen (Tylenol -) 650 mg PO Q6H PRN PRN Reason: FEVER Albuterol Sulfate (Ventolin 0.083% Nebulizer Soln -) 1 amp NEB Q4H PRN PRN Reason: SHORT OF BREATH/WHEEZING Albuterol/Ipratropium (Duoneb -) 1 amp NEB Q4H PRN PRN Reason: SHORTNESS OF BREATH Last Admin: 03/04/19 17:43 Dose: 1 amp Heparin Sodium (Porcine) (Heparin -) 5,000 unit SQ BID [facility] Last Admin: 03/06/19 09:17 Dose: 5,000 unit Sodium Chloride (1/2 Normal Saline) 1,000 mls @ 75 mls/hr IV ASDIR [facility] Last Admin: 03/05/19 06:25 Dose: 75 mls/hr Prednisone (Deltasone -) 40 mg PO DAILY [facility] Last Admin: 03/06/19 09:15 Dose: 40 mg Tamsulosin HCl (Flomax -) 0.4 mg PO DAILY@0830 [facility] Last Admin: 03/06/19 09:15 Dose: 0.4 mg - Objective Vital Signs: Vital Signs Temperature 98.6 F 03/05/19 22:00 Pulse Rate 92 H 03/05/19 22:00 Respiratory Rate 18 03/05/19 22:00 Blood Pressure 131/67 03/05/19 22:00 O2 Sat by Pulse Oximetry (%) 97 03/05/19 21:00 Constitutional: Yes: No Distress, Calm Cardiovascular: Yes: S1, S2 Respiratory: Yes: Regular, CTA Bilaterally Gastrointestinal: Yes: Normal Bowel Sounds, Soft Musculoskeletal: Yes: WNL Extremities: Yes: Other Neurological: Yes: Alert, Oriented Psychiatric: Yes: Alert, Oriented Labs: CBC, BMP 03/03/19 07:35 03/05/19 11:30 Assessment/Plan roblem List - Problems (1) COPD (chronic obstructive pulmonary disease) Code(s): J44.9 - CHRONIC OBSTRUCTIVE PULMONARY DISEASE, UNSPECIFIED (2) Smoker Code(s): F17.200 - NICOTINE DEPENDENCE, UNSPECIFIED, UNCOMPLICATED (3) Pulmonary nodules/lesions, multiple Code(s): R91.8 - OTHER NONSPECIFIC ABNORMAL FINDING OF LUNG FIELD (4) Emphysema of lung Code(s): J43.9 - EMPHYSEMA, UNSPECIFIED (5) Shortness of breath Code(s): R06.02 - SHORTNESS OF BREATH (6) Urinary retention Code(s): R33.9 - RETENTION OF URINE, UNSPECIFIED bph plan continue current mgmt monitor
--- NOTE | 2019-03-06 12:43 | DS ---
Physical Examination Vital Signs: Vital Signs Temperature 98.4 F 03/06/19 09:28 Pulse Rate 104 H 03/06/19 09:28 Respiratory Rate 18 03/06/19 09:28 Blood Pressure 113/58 L 03/06/19 09:28 O2 Sat by Pulse Oximetry (%) 97 03/05/19 21:00 Constitutional: Yes: No Distress HENT: Yes: Atraumatic Neck: Yes: Supple Cardiovascular: Yes: Regular Rate and Rhythm Respiratory: Yes: CTA Bilaterally Gastrointestinal: Yes: Normal Bowel Sounds Extremities: Yes: WNL Neurological: Yes: Alert, Oriented Labs: CBC, BMP 03/03/19 07:35 03/05/19 11:30 Discharge Summary Problems reviewed: Yes Reason For Visit: ACUTE KIDNEY INJURY Current Active Problems JEFRY (acute kidney injury) (Acute) COPD (chronic obstructive pulmonary disease) (Acute) COPD exacerbation (Acute) Emphysema of lung (Acute) GERD (gastroesophageal reflux disease) (Acute) Obstructive uropathy (Acute) Pulmonary nodules/lesions, multiple (Acute) Shortness of breath (Acute) Smoker (Acute) Urinary retention (Acute) Condition: Stable - Instructions - Home Medications Comprehensive Discharge Medication List: Ambu Prednisone 10 mg PO ASDIR #30 tablet 03/06/19 Tamsulosin HCl [Flomax -] 0.4 mg PO DAILY@0830 #30 cap.er.24h 03/06/19
--- NOTE | 2019-03-06 12:50 | PN ---
Progress Note, Physician History of Present Illness: pulmonary alert,oob-chair,comfortable,-sob,-cp - Current Medication List Current Medications: Active Medications Acetaminophen (Tylenol -) 650 mg PO Q6H PRN PRN Reason: FEVER Albuterol Sulfate (Ventolin 0.083% Nebulizer Soln -) 1 amp NEB Q4H PRN PRN Reason: SHORT OF BREATH/WHEEZING Albuterol/Ipratropium (Duoneb -) 1 amp NEB Q4H PRN PRN Reason: SHORTNESS OF BREATH Last Admin: 03/04/19 17:43 Dose: 1 amp Heparin Sodium (Porcine) (Heparin -) 5,000 unit SQ BID [facility] Last Admin: 03/06/19 09:17 Dose: 5,000 unit Sodium Chloride (1/2 Normal Saline) 1,000 mls @ 75 mls/hr IV ASDIR [facility] Last Admin: 03/05/19 06:25 Dose: 75 mls/hr Prednisone (Deltasone -) 40 mg PO DAILY [facility] Last Admin: 03/06/19 09:15 Dose: 40 mg Tamsulosin HCl (Flomax -) 0.4 mg PO DAILY@0830 [facility] Last Admin: 03/06/19 09:15 Dose: 0.4 mg - Objective Vital Signs: Vital Signs Temperature 98.4 F 03/06/19 09:28 Pulse Rate 104 H 03/06/19 09:28 Respiratory Rate 18 03/06/19 09:28 Blood Pressure 113/58 L 03/06/19 09:28 O2 Sat by Pulse Oximetry (%) 97 03/05/19 21:00 Constitutional: Yes: Calm, Thin Eyes: Yes: WNL HENT: Yes: WNL Neck: Yes: WNL Cardiovascular: Yes: Regular Rate and Rhythm, S1, S2 Respiratory: Yes: Diminished Gastrointestinal: Yes: Normal Bowel Sounds, Soft Extremities: Yes: WNL Edema: No Assessment/Plan Problem List - Problems (1) COPD (chronic obstructive pulmonary disease) Code(s): J44.9 - CHRONIC OBSTRUCTIVE PULMONARY DISEASE, UNSPECIFIED (2) Smoker Code(s): F17.200 - NICOTINE DEPENDENCE, UNSPECIFIED, UNCOMPLICATED (3) Pulmonary nodules/lesions, multiple Code(s): R91.8 - OTHER NONSPECIFIC ABNORMAL FINDING OF LUNG FIELD (4) Emphysema of lung Code(s): J43.9 - EMPHYSEMA, UNSPECIFIED (5) Shortness of breath Code(s): R06.02 - SHORTNESS OF BREATH (6) Urinary retention Code(s): R33.9 - RETENTION OF URINE, UNSPECIFIED 7 JEFRY Assessment/Plan Prednisone OD No smoking counseled discharge on LAMA/LABA BD TX PRN Outpatient PFTs Yearly LDCT screening Monitor lytes,renal function DR PENA
[2019-03-06] MEDS: ALBUTEROL SO4 2.5/IPRATROPIUM 0.5 INH SOL 3 ML VIAL.NEB. NEB PRN (13:22)
--- NOTE | 2019-03-06 13:27 | PN ---
Progress Note, Physician History of Present Illness: Dyspnea resolved, albrecht draining clear urine. - Current Medication List Current Medications: Active Medications Acetaminophen (Tylenol -) 650 mg PO Q6H PRN PRN Reason: FEVER Albuterol Sulfate (Ventolin 0.083% Nebulizer Soln -) 1 amp NEB Q4H PRN PRN Reason: SHORT OF BREATH/WHEEZING Albuterol/Ipratropium (Duoneb -) 1 amp NEB Q4H PRN PRN Reason: SHORTNESS OF BREATH Last Admin: 03/04/19 17:43 Dose: 1 amp Heparin Sodium (Porcine) (Heparin -) 5,000 unit SQ BID [facility] Last Admin: 03/06/19 09:17 Dose: 5,000 unit Sodium Chloride (1/2 Normal Saline) 1,000 mls @ 75 mls/hr IV ASDIR [facility] Last Admin: 03/05/19 06:25 Dose: 75 mls/hr Prednisone (Deltasone -) 40 mg PO DAILY [facility] Last Admin: 03/06/19 09:15 Dose: 40 mg Tamsulosin HCl (Flomax -) 0.4 mg PO DAILY@0830 [facility] Last Admin: 03/06/19 09:15 Dose: 0.4 mg - Objective Vital Signs: Vital Signs Temperature 98.4 F 03/06/19 09:28 Pulse Rate 104 H 03/06/19 09:28 Respiratory Rate 18 03/06/19 09:28 Blood Pressure 113/58 L 03/06/19 09:28 O2 Sat by Pulse Oximetry (%) 97 03/05/19 21:00 Constitutional: Yes: No Distress, Calm Neck: Yes: Supple Cardiovascular: Yes: Regular Rate and Rhythm Respiratory: Yes: Regular, CTA Bilaterally Gastrointestinal: Yes: Normal Bowel Sounds, Soft Genitourinary: Yes: Albrecht Present Edema: No Labs: CBC, BMP 03/03/19 07:35 03/05/19 11:30 Problem List - Problems (1) Obstructive uropathy Code(s): N13.9 - OBSTRUCTIVE AND REFLUX UROPATHY, UNSPECIFIED (2) JEFRY (acute kidney injury) Code(s): N17.9 - ACUTE KIDNEY FAILURE, UNSPECIFIED (3) COPD (chronic obstructive pulmonary disease) Code(s): J44.9 - CHRONIC OBSTRUCTIVE PULMONARY DISEASE, UNSPECIFIED Qualifiers: COPD type: unspecified COPD Qualified Code(s): J44.9 - Chronic obstructive pulmonary disease, unspecified (4) Urinary retention Code(s): R33.9 - RETENTION OF URINE, UNSPECIFIED Assessment/Plan 1. Severe COPD with shortness of breath improving 2. JEFRY with bilateral hydronephrosis and obstructive uropathy resolving 3. GERD PLAN: 1. BD, O2, oral steroids, flomax, albrecht drainage and monitor renal recovery 2. Echocardiography can be done to assess LV/RV and valvular function 3. No specific cardiac therapy is warranted at this time 4. DVT prophylaxis
[2019-03-06 15:12] VITALS: BP 134/59; PULSE 112; TEMP 98.3
--- NOTE | 2019-03-06 18:25 | PN ---
Progress Note, Physician History of Present Illness: Pt seen and examined at bedside. He is awake and alert. - Objective Vital Signs: Vital Signs Temperature 98.3 F 03/06/19 15:09 Pulse Rate 112 H 03/06/19 15:09 Respiratory Rate 18 03/06/19 15:09 Blood Pressure 134/59 L 03/06/19 15:09 O2 Sat by Pulse Oximetry (%) 98 03/06/19 09:00 Constitutional: Yes: Calm Eyes: Yes: Conjunctiva Clear HENT: Yes: Atraumatic Neck: Yes: Supple Cardiovascular: Yes: S1, S2 Respiratory: Yes: CTA Bilaterally Gastrointestinal: Yes: Normal Bowel Sounds, Soft Genitourinary: Yes: Kim Present Musculoskeletal: Yes: WNL Edema: No Neurological: Yes: Oriented Psychiatric: Yes: Oriented Labs: CBC, BMP 03/03/19 07:35 03/05/19 11:30 Assessment/Plan Impression 1. JEFRY 2. hydronephrosis 3. obstructive uropathy 4. copd 5. asthma Plan - no new labs - will need outpt follow up - pt evaluated by urology, will follow as outpt - jefry from obstruction
== END 2019-03-06 16:59 | disposition home or self-care (01) | DRG 469 ==
LOC: JER 12:16 → JERBED 18:52 → J5S 23:43
PROVIDERS: ADMIT Internal Medicine; ATTEND Internal Medicine
DX: N17.9 Acute kidney failure, unspecified (principal); J44.1 Chronic obstructive pulmonary disease with (acute) exacerbation; K21.9 Gastro-esophageal reflux disease without esophagitis; I45.10 Unspecified right bundle-branch block; R33.9 Retention of urine, unspecified; R64 Cachexia; Z68.20 Body mass index [BMI] 20.0-20.9, adult; N13.2 Hydronephrosis with renal and ureteral calculous obstruction; N40.0 Benign prostatic hyperplasia without lower urinary tract symptoms; F17.200 Nicotine dependence, unspecified, uncomplicated; R91.8 Other nonspecific abnormal finding of lung field; N13.9 Obstructive and reflux uropathy, unspecified
CPT/HCPCS: 36415; 71045-TC-FY; 71250-TC; 74176-TC; 76604; 80053; 81003; 82550; 82553; 82962; 83690; 83880; 84484; 85025; 87086; 93005; 93010; 94640; 99284-25; J1644; J7030

== ENCOUNTER 2019-03-21 05:10 | Emergency (ER) | payer MEDICARE, OTHER ==
[2019-03-21 06:33] VITALS: TEMP 97.8
--- NOTE | 2019-03-21 07:20 | PDOC ---
History of Present Illness - General Chief Complaint: Urinary Problem Stated Complaint: UNABLE TO URINATE S/P RENAL FAILURE Past History - Past Medical History Allergies/Adverse Reactions: Allergies Allergy/AdvReac Type Severity Reaction Status Date / Time No Known Allergies Allergy Verified 03/02/19 12:45 Home Medications: Ambulatory Orders Meclizine HCl [Antivert -] 25 mg PO TID PRN #14 tablet 08/04/13 No Home Medications 0 dose .ROUTE UTDICT 08/04/13 Prednisone 10 mg PO ASDIR #30 tablet 03/06/19 Tamsulosin HCl [Flomax -] 0.4 mg PO DAILY@0830 #30 cap.er.24h 03/06/19 Sulfamethoxazole/Trimethoprim [Bactrim Ds -] 1 tab PO BID #14 tablet 03/21/19 Asthma: Yes COPD: Yes - Immunization History Immunization Up to Date: Yes - Psycho Social/Smoking Cessation Hx Smoking History: Never smoked Have you smoked in the past 12 months: No If you are a former smoker, when did you quit?: 2 months ago 'Breaking Loose' booklet given: 03/02/19 Hx Alcohol Use: No Drug/Substance Use Hx: No Substance Use Type: None Hx Substance Use Treatment: No Review of Systems - Review of Systems Able to Perform ROS?: Yes Comments:: GENERAL/CONSTITUTIONAL: No fever or chills. No weakness._ HEAD, EYES, EARS, NOSE AND THROAT: No change in vision. No change in hearing. No sore throat._ CARDIOVASCULAR: No chest pain or shortness of breath_ RESPIRATORY: Denies cough, hemoptysis_ GASTROINTESTINAL: No nausea, vomiting, diarrhea or constipation._ GENITOURINARY: No dysuria, frequency, or change in urination._ MUSCULOSKELETAL: No joint or muscle swelling or pain. No neck or back pain._ SKIN: No rash_ NEUROLOGIC: No headache, vertigo, loss of consciousness, or change in strength/ sensation._ ENDOCRINE: No increased thirst. No abnormal weight change_ HEMATOLOGIC/LYMPHATIC: No anemia, easy bleeding, or history of blood clots._ ALLERGIC/IMMUNOLOGIC: No hives or skin allergy._ 03/21/19 07:18 Is the patient limited [place] proficient: No *Physical Exam - Vital Signs Last Vital Signs Temp Pulse Resp BP Pulse Ox 97.8 F 110 H 20 152/70 97 03/21/19 06:10 12/28/19 06:10 03/21/19 06:10 03/21/19 06:10 03/21/19 06:10 - Physical Exam GENERAL: Awake, alert, and oriented to person/place/time, in no acute distress HEAD: No signs of trauma, normocephalic, atraumatic EYES: PERRLA, EOMI, sclera anicteric, conjunctiva clear ENT: Hearing grossly normal, nares patent, oropharynx clear without exudates. No uvular deviation. Moist mucosa LUNGS: No distress, speaks in full sentences, clear to auscultation bilaterally HEART: Regular rate and rhythm, normal S1 and S2, no murmurs appreciated, peripheral pulses normal and equal bilaterally ABDOMEN: Soft, nontender, normoactive bowel sounds. No guarding, no rebound EXTREMITIES: Normal inspection, Normal range of motion, no edema. No clubbing or cyanosis NEUROLOGICAL: Cranial nerves II through XII grossly intact. Normal speech, normal gait, no focal sensorimotor deficits SKIN: Warm, Dry 03/21/19 07:20 ED Treatment Course - LABORATORY CBC & Chemistry Diagram: 03/21/19 07:26 03/21/19 07:26 Medical Decision Making - Medical Decision Making The pt is a 78M w/ a history of Asthma, COPD who presents for evaluation of urinary retention s/p albrecht removal yesterday. Albrecht placed Initial Uop 1300mL UA w/ evidence of UTI Bactrim x1 in ED Rx for Bactrim for 7 days sent to pt's pharmacy Cr at pt's baseline Plan for D/C w/ Urology Discharge instructions and return precautions given Patient in agreement and verbalized understanding Dispo: Home 03/21/19 08:41 Discharge - Discharge Information Problems reviewed: Yes Clinical Impression/Diagnosis: Urinary retention Condition: Improved Disposition: HOME - Admission No - Additional Discharge Information Prescriptions: Sulfamethoxazole/Trimethoprim [Bactrim Ds -] 1 tab PO BID #14 tablet - Follow up/Referral Referrals: Joo Stanford MD [Staff Physician] - - Patient Discharge Instructions Patient Printed Discharge Instructions: How to Care for Your Albrecht Catheter -- Male, DI for Urinary Retention in Men Additional Instructions: You were seen in the Emergency Department for evaluation of urinary retention. A albrecht was placed. You were found to have a urinary tract infection. You were treated with Bactrim and a prescription was sent to your pharmacy. Take as directed. Review the handout provided at discharge. Follow up with Urology this coming week. Return to the Emergency Department if you develop fevers, chest pain, trouble breathing, worsening symptoms, or any new/concerning symptoms; also if you develop trouble with the albrecht or it is accidentally removed for any reason. - Post Discharge Activity
[2019-03-21 08:06] LABS: BASO % 0.5 % (0-2.0); EOS % 0.4 % (0-4.5); HEMATOCRIT 37.5 % (35.4-49); HEMOGLOBIN 12.7 GM/dL (11.7-16.9); LYMPH % 12.4 % (8-40); MCH 30.3 pg (25.7-33.7); MCHC 33.8 g/dl (32.0-35.9); MEAN CELL VOLUME 89.7 fl (80-96); MEAN PLT VOLUME 6.5 fl (7.5-11.1); MONO % 12.1 % (3.8-10.2); NEUT % 74.6 % (42.8-82.8); PLATELET COUNT 293 K/MM3 (134-434); RBC 4.19 M/mm3 (4.00-5.60); RDW 15.5 % (11.9-15.9); WHITE BLOOD COUNT 5.8 K/mm3 (4.0-10.0)
[2019-03-21 08:14] LABS: EPI CELLS 0.2 /HPF (0-5/HPF); HYALINE CASTS 4 /lpf (0-8); PH,URINE 6.5 (5.0-8.0); URINE APPEARANCE TURBID; URINE BACTERIA 2312.1 /hpf (NEGATIVE); URINE BILIRUBIN NEGATIVE (NEGATIVE); URINE COLOR YELLOW; URINE GLUCOSE (UA) NEGATIVE (NEGATIVE); URINE KETONE NEGATIVE (NEGATIVE); URINE LEUK ESTERASE 3+ (NEGATIVE); URINE NITRITE NEGATIVE (NEGATIVE); URINE PROTEIN 2+ (NEGATIVE); URINE UROBILINOGEN 0.2 mg/dL (0.2-1.0); URINE WBC 2233 /hpf (0-5)
[2019-03-21 08:30] LABS: BILIRUBIN,TOTAL 0.3 mg/dL (0.2-1); BLOOD UREA NITROGEN 26.4 mg/dL (7-18); CALCIUM 9.1 mg/dL (8.5-10.1); CREATININE 1.3 mg/dL (0.55-1.3); POTASSIUM 4.7 mmol/L (3.5-5.1); TOT PROT 6.2 g/dl (6.4-8.2)
[2019-03-21] MEDS ORDERED: SULFAMETHOXAZOLE/TRIMETHOPRIM 800MG/160MG D.S. TABLET PO ONE (08:41)
[2019-03-21] MEDS ORDERED: SULFAMETHOXAZOLE/TRIMETHOPRIM 800MG/160MG D.S. TABLET ONE (08:46)
[2019-03-21 08:58] VITALS: BP 117/78; PULSE 106
--- NOTE | 2019-03-21 09:29 | PDOC ---
Documentation entered by Gabriella Del Rosario SCRIBE, acting as scribe for Mya French MD. Mya French MD: This documentation has been prepared by the Carin torres Xhesika, SCRIBE, under my direction and personally reviewed by me in its entirety. I confirm that the documentation accurately reflects all work, treatment, procedures, and medical decision making performed by me. Attending Attestation - Resident Resident Name: Franck Brian - [facility] HPI: 03/21/19 09:09 The patient is a 78 year old male with a significant PMH of COPD (does not use home O2), asthma, GERD who presents to the emergency department for abdominal pain and the inability to void. Patient was recently admitted at [facility] 03/02/19 for COPD/ asthma exacerbation. During admission, the patient had a albrecht placed and was later d/c home with albrecht in place. Albrecht was discontinued yesterday and PT was not able to void, which is why he came into ED today. Albrecht inserted in the ED 1.5 liters of cloudy urine drained from albrecht. Pt no longer has abdominal pain. The patient denies chest pain, shortness of breath, headache and dizziness. Denies fever, chills, cough, nausea, vomiting, diarrhea and constipation. Denies dysuria, frequency, and hematuria. Allergies: NKDA Social history: 1-2ppd for 60 years, has been reduced to 0.5ppd in recent years 03/21/19 09:21 - Physicial Exam PE: 03/21/19 09:10 GENERAL: The patient is awake, alert, and fully oriented, Nontoxic - in no acute distress. HEAD: Normocephalic, atraumatic. EYES: extraocular movements intact, sclera anicteric, conjunctiva clear. ENT: Normal voice, moist mucous membranes. NECK: Normal range of motion, supple without lymphadenopathy, JVD, or masses. LUNGS: Breath sounds equal, clear to auscultation bilaterally. No wheezes, no crackles, no rales. HEART: +tachy HR 103, normal S1 and S2 without murmur, rub or gallop. ABDOMEN: Soft, nontender, normoactive bowel sounds. No guarding, no rebound. No masses. PELVIC: +albrecht in place, cloudey urine with sediment NEUROLOGICAL: Fully Oriented, Alert, Normal Mood/Affect. No facial assymetry, Normal speech SKIN: Warm, Dry, normal turgor, no rashes or lesions noted. 03/21/19 09:24 - Medical Decision Making 03/21/19 09:24 88 y/o male seen in ED for abdominal discomfort and inability to urinate. Pt abdominal pain resolved with insertion of albrecht. Pt 's labs reviwed. Pt s stable for dc home with albrecht in place, urine cx is pending, pt s on flomax. Pt will be started on bactrim, urine cx form two weeks ago negative, Pt remains slightly rachycardic at 103 may be seconadry to uti. At time of discharge Pt is not sob, has no fever, sa02 97% on rm air. PT will need fu with pcp and with urology. pt and daughter given opportunity to ask and have all questions answered prior to dc home.
[2019-03-21 17:34] LABS: URINE RBC 31.4 /hpf (0-4); YEAST NONE SEEN (NEGATIVE)
== END 2019-03-21 09:01 | disposition home or self-care (01) ==
LOC: JER 05:10
PROC: 0T9B70Z Drainage of Bladder with Drainage Device, Via Natural or Artificial Opening (ICD-10-PCS; principal; 2019-03-21)
DX: R10.9 Unspecified abdominal pain (principal); R33.8 Other retention of urine; J44.9 Chronic obstructive pulmonary disease, unspecified; J45.998 Other asthma; K21.9 Gastro-esophageal reflux disease without esophagitis; F17.210 Nicotine dependence, cigarettes, uncomplicated
CPT/HCPCS: 36415; 80053; 81003; 85025; 87086; 87186; 99282-25

== ENCOUNTER 2020-07-18 12:57 | Emergency (ER) | payer OTHER ==
[2020-07-18 13:14] VITALS: BMI 22.9
[2020-07-18] MEDS ORDERED: ALBUTEROL SO4 2.5/IPRATROPIUM 0.5 INH SOL 3 ML VIAL.NEB. NEB ONE ×2 (13:30→14:00)
[2020-07-18 13:51] LABS: BASO % 0.4 % (0-2.0); HEMATOCRIT 41.4 % (35.4-49); HEMOGLOBIN 14.4 GM/dL (11.7-16.9); LYMPH % 5.5 % (8-40); MCH 31.6 pg (25.7-33.7); MCHC 34.7 g/dl (32.0-35.9); MEAN CELL VOLUME 90.8 fl (80-96); MEAN PLT VOLUME 6.4 fl (7.5-11.1); MONO % 7.2 % (3.8-10.2); NEUT % 83.9 % (42.8-82.8); PLATELET COUNT 344 K/MM3 (134-434); RBC 4.56 M/mm3 (4.00-5.60); RDW 13.7 % (11.9-15.9); WHITE BLOOD COUNT 8.1 K/mm3 (4.0-10.0)
[2020-07-18 14:02] LABS: VENOUS BASE EXCESS 3.3 mmol/L (-2-2); VENOUS O2 SATURATION 50.2 % (70-80); VENOUS PH 7.325 (7.310-7.410)
[2020-07-18 14:19] LABS: CHLORIDE 100 mmol/L (98-107); SODIUM 136 mmol/L (136-145)
[2020-07-18 14:21] LABS: ALBUMIN 3.5 g/dl (3.4-5.0); ANION GAP 1 MMOL/L (8-16); BLOOD UREA NITROGEN 21.1 mg/dL (7-18); CO2 34 mmol/L (21-32); GLUCOSE,RANDOM 106 mg/dL (74-106)
[2020-07-18 14:24] LABS: SGPT/ALT 21 U/L (13-61)
[2020-07-18 14:25] LABS: CREATININE 1.2 mg/dL (0.55-1.3); SGOT/AST 17 U/L (15-37)
[2020-07-18 14:26] LABS: BILIRUBIN,TOTAL 0.5 mg/dL (0.2-1); TOT PROT 7.1 g/dl (6.4-8.2)
[2020-07-18 14:27] LABS: ALK PHOS 80 U/L (45-117)
[2020-07-18] MEDS ORDERED: SODIUM CHLORIDE 1,000 ML IV STA (14:42)
[2020-07-18 18:08] VITALS: BP 119/69; PULSE 102; TEMP 98
== END 2020-07-18 19:00 | disposition home or self-care (01) ==
LOC: JER 12:57
PROC: 3E0F7GC Introduction of Other Therapeutic Substance into Respiratory Tract, Via Natural or Artificial Opening (ICD-10-PCS; principal; 2020-07-18)
DX: R06.02 Shortness of breath (principal)
CPT/HCPCS: 36415; 71045-TC-FY; 80053; 82550; 82803; 84484; 85025; 93005; 93010; 99284-25; C9803; U0003; U0005

== ENCOUNTER 2020-07-19 13:52 | Inpatient (IN) | payer OTHER ==
[2020-07-19] MEDS ORDERED: ALBUTEROL SO4 2.5/IPRATROPIUM 0.5 INH SOL 3 ML VIAL.NEB. NEB ONE ×4 (14:36→19:34)
[2020-07-19] MEDS: ALBUTEROL SO4 2.5/IPRATROPIUM 0.5 INH SOL 3 ML VIAL.NEB. NEB SCH ×2 (14:42→15:30)
[2020-07-19 15:02] LABS: VENOUS BASE EXCESS 0.7 mmol/L (-2-2); VENOUS O2 SATURATION 53.5 % (70-80); VENOUS PCO2 61.8 mmHg (38-52); VENOUS PH 7.29 (7.310-7.410)
[2020-07-19 15:03] LABS: BASO % 0.2 % (0-2.0); EOS % 0.1 % (0-4.5); HEMATOCRIT 45.8 % (35.4-49); HEMOGLOBIN 15.3 GM/dL (11.7-16.9); LYMPH % 4.4 % (8-40); MCH 30.8 pg (25.7-33.7); MCHC 33.4 g/dl (32.0-35.9); MEAN CELL VOLUME 92.1 fl (80-96); MEAN PLT VOLUME 6.8 fl (7.5-11.1); MONO % 10.2 % (3.8-10.2); NEUT % 85.1 % (42.8-82.8); PLATELET COUNT 404 K/MM3 (134-434); RBC 4.97 M/mm3 (4.00-5.60); RDW 13.8 % (11.9-15.9); WHITE BLOOD COUNT 11.4 K/mm3 (4.0-10.0)
[2020-07-19 15:22] LABS: CHLORIDE 102 mmol/L (98-107); SODIUM 138 mmol/L (136-145)
[2020-07-19 15:23] LABS: CALCIUM 9.7 mg/dL (8.5-10.1)
[2020-07-19 15:24] LABS: ALBUMIN 3.6 g/dl (3.4-5.0); ANION GAP 2 MMOL/L (8-16); BLOOD UREA NITROGEN 23.2 mg/dL (7-18); CO2 34 mmol/L (21-32); GLUCOSE,RANDOM 120 mg/dL (74-106)
[2020-07-19 15:26] LABS: CREATININE 1.1 mg/dL (0.55-1.3); SGOT/AST 30 U/L (15-37); SGPT/ALT 27 U/L (13-61)
[2020-07-19 15:28] LABS: BILIRUBIN,TOTAL 0.3 mg/dL (0.2-1); TOT PROT 7.6 g/dl (6.4-8.2)
[2020-07-19 15:30] LABS: ALK PHOS 78 U/L (45-117)
[2020-07-19] MEDS ORDERED: predniSONE 20 MG TABLET (UD) PO ONE (15:44)
[2020-07-19] MEDS ORDERED: predniSONE 20 MG TABLET (UD) ONE (16:39)
[2020-07-19] MEDS ORDERED: predniSONE 10 MG TABLET (UD) PO ONE (20:31)
[2020-07-19] MEDS ORDERED: ALBUTEROL SO4 HFA INHALER IH ONE ×2 (20:32→20:34)
[2020-07-19] MEDS ORDERED: predniSONE 10 MG TABLET (UD) ONE (20:34)
[2020-07-19 21:42] LABS: ARTERIAL BLD GAS O2 SATURATION 97.9 mmHg (95-98); ARTERIAL BLOOD GAS BASE EXCESS 0.4 mmol/L (-2-2); ARTERIAL BLOOD GAS PO2 109.5 mmHg (80-100); ARTERIAL BLOOD GAS pH 7.385 (7.350-7.450)
[2020-07-19] MEDS ORDERED: AZITHROMYCIN IVPB 500 MG/250 ML BAG IVPB SCH (22:00)
[2020-07-19] MEDS ORDERED: DOCUSATE SODIUM 100 MG CAPSULE (FP) PO PRN (22:04)
[2020-07-19] MEDS ORDERED: NICOTINE 14 MG/24 HOURS TOPICAL PATCH TD PRN (22:09)
[2020-07-20] MEDS: methylPREDNISolone NA SUCC 40 MG/1 ML VIAL IVPUSH SCH ×3 (01:29→17:31)
[2020-07-20 05:10] LABS: EPI CELLS 3 /uL (0-25.1); HYALINE CASTS 1 /uL (0-3.1); PH,URINE 5.5 (5.0-8.0); URINE APPEARANCE CLEAR; URINE BACTERIA 2 /uL (0-1359); URINE BILIRUBIN NEGATIVE (NEGATIVE); URINE COLOR YELLOW; URINE GLUCOSE (UA) 2+ (NEGATIVE); URINE KETONE NEGATIVE (NEGATIVE); URINE LEUK ESTERASE NEGATIVE (NEGATIVE); URINE NITRITE NEGATIVE (NEGATIVE); URINE PROTEIN 2+ (NEGATIVE); URINE RBC 55 /uL (0-23.9); URINE UROBILINOGEN 0.2 mg/dL (0.2-1.0); URINE WBC 7 /uL (0-25.8)
[2020-07-20] MEDS: ALBUTEROL SO4 HFA INHALER IH PRN ×2 (06:01→18:46)
[2020-07-20] MEDS ORDERED: PT OWN MED DRAWER 7, Y5N ONE (06:39)
[2020-07-20] MEDS ORDERED: TAMSULOSIN HCL 0.4 MG CAP PO SCH (08:30)
[2020-07-20 09:31] LABS: BASO % 0.1 % (0-2.0); HEMATOCRIT 39.9 % (35.4-49); HEMOGLOBIN 13.6 GM/dL (11.7-16.9); LYMPH % 2.9 % (8-40); MCHC 34.2 g/dl (32.0-35.9); MEAN CELL VOLUME 90.8 fl (80-96); MEAN PLT VOLUME 6.8 fl (7.5-11.1); MONO % 2.4 % (3.8-10.2); NEUT % 94.6 % (42.8-82.8); PLATELET COUNT 376 K/MM3 (134-434); RDW 13.7 % (11.9-15.9); WHITE BLOOD COUNT 9.4 K/mm3 (4.0-10.0)
[2020-07-20] MEDS: PANTOPRAZOLE 40 MG TABLET PO SCH (09:38)
[2020-07-20] MEDS: ENOXAPARIN NA (PORCINE) 40 MG/0.4 ML DISP.SYRIN SQ SCH (09:39)
[2020-07-20 09:57] LABS: ALBUMIN 3.3 g/dl (3.4-5.0); BLOOD UREA NITROGEN 32.1 mg/dL (7-18); CALCIUM 8.9 mg/dL (8.5-10.1); MAGNESIUM 2.5 mg/dL (1.8-2.4)
[2020-07-20 10:00] LABS: CREATININE 1.1 mg/dL (0.55-1.3)
[2020-07-20] MEDS ORDERED: FLU VACCINE (FLULAVAL) PF 60 MCG/0.5 ML SYRINGE 2020-2021 IM ONE (10:00)
[2020-07-20] MEDS ORDERED: PNEUMOC 13-VAL CONJ-DIP CRM/PF 0.5 ML DISP.SYRIN IM ONE (10:00)
[2020-07-20 10:01] LABS: PHOSPHOROUS 2.7 mg/dL (2.5-4.9)
[2020-07-20 10:02] LABS: BILIRUBIN,TOTAL 0.3 mg/dL (0.2-1); TOT PROT 6.7 g/dl (6.4-8.2)
[2020-07-20] MEDS: BUDESONIDE/FORMETEROL FUMARATE 160/4.5 mcg INHALER IH SCH ×2 (10:13→21:18)
[2020-07-20 12:14] LABS: ANISOCYTOSIS 0; MACROCYTOSIS 0; PLATELET ESTIMATE NORMAL
[2020-07-20] MEDS: AZITHROMYCIN 250 MG TABLET PO SCH (17:15)
[2020-07-20] MEDS: ALBUTEROL SO4 2.5/IPRATROPIUM 0.5 INH SOL 3 ML VIAL.NEB. NEB PRN (19:10)
[2020-07-20] MEDS: MONTELUKAST NA 10 MG TABLET PO SCH (21:18)
[2020-07-21] MEDS: methylPREDNISolone NA SUCC 40 MG/1 ML VIAL IVPUSH SCH ×3 (01:22→17:28)
[2020-07-21] MEDS: ALBUTEROL SO4 2.5/IPRATROPIUM 0.5 INH SOL 3 ML VIAL.NEB. NEB PRN (08:18)
[2020-07-21 08:31] LABS: HEMATOCRIT 42.7 % (35.4-49); HEMOGLOBIN 14.2 GM/dL (11.7-16.9); LYMPH % 3.3 % (8-40); MCH 30.3 pg (25.7-33.7); MCHC 33.2 g/dl (32.0-35.9); MEAN CELL VOLUME 91.4 fl (80-96); MEAN PLT VOLUME 6.9 fl (7.5-11.1); MONO % 4.6 % (3.8-10.2); NEUT % 92.1 % (42.8-82.8); PLATELET COUNT 397 K/MM3 (134-434); RBC 4.67 M/mm3 (4.00-5.60); RDW 14.1 % (11.9-15.9); WHITE BLOOD COUNT 11.3 K/mm3 (4.0-10.0)
[2020-07-21 09:08] LABS: ALBUMIN 3.4 g/dl (3.4-5.0); BILIRUBIN,TOTAL 0.3 mg/dL (0.2-1); BLOOD UREA NITROGEN 41.6 mg/dL (7-18); CALCIUM 9.4 mg/dL (8.5-10.1); TOT PROT 6.9 g/dl (6.4-8.2)
[2020-07-21 09:10] LABS: MAGNESIUM 2.9 mg/dL (1.8-2.4)
[2020-07-21 09:11] LABS: CREATININE 1.2 mg/dL (0.55-1.3); PHOSPHOROUS 3.6 mg/dL (2.5-4.9)
[2020-07-21] MEDS ORDERED: PT OWN MED DRAWER 7, Y5N ONE (09:18)
[2020-07-21] MEDS: ENOXAPARIN NA (PORCINE) 40 MG/0.4 ML DISP.SYRIN SQ SCH (09:22)
[2020-07-21] MEDS: PANTOPRAZOLE 40 MG TABLET PO SCH (09:22)
[2020-07-21] MEDS: AZITHROMYCIN 250 MG TABLET PO SCH (09:22)
[2020-07-21] MEDS: TAMSULOSIN HCL 0.4 MG CAP PO SCH (09:23)
[2020-07-21] MEDS: BUDESONIDE/FORMETEROL FUMARATE 160/4.5 mcg INHALER IH SCH ×2 (09:29→21:10)
[2020-07-21] MEDS ORDERED: ALBUTEROL SO4 0.083% IH SOL 2.5 MG/3 ML VIAL.NEB. NEB PRN (09:44)
[2020-07-21] MEDS ORDERED: AZITHROMYCIN 250 MG TABLET PO SCH (10:00)
[2020-07-21 10:08] LABS: SARS-CoV-2 NAA Not Detected (Not Detected)
[2020-07-21 11:14] LABS: ANISOCYTOSIS 0; MACROCYTOSIS 0; OVALOCYTE 1+; PLATELET ESTIMATE NORMAL
[2020-07-21] MEDS: ALBUTEROL SO4 2.5/IPRATROPIUM 0.5 INH SOL 3 ML VIAL.NEB. NEB SCH ×3 (11:41→20:09)
[2020-07-21] MEDS: MONTELUKAST NA 10 MG TABLET PO SCH (21:11)
[2020-07-21] MEDS: SENNOSIDES 8.6MG TABLET (FP) PO PRN (21:11)
[2020-07-21] MEDS: MELATONIN 5 MG TABLETS PO PRN (21:11)
[2020-07-22] MEDS ORDERED: PT OWN MED DRAWER 7, Y5N ONE ×2 (01:01→09:22)
[2020-07-22] MEDS: methylPREDNISolone NA SUCC 40 MG/1 ML VIAL IVPUSH SCH ×3 (01:06→17:22)
[2020-07-22] MEDS: ALBUTEROL SO4 2.5/IPRATROPIUM 0.5 INH SOL 3 ML VIAL.NEB. NEB SCH ×4 (08:10→20:15)
[2020-07-22 08:12] LABS: BASO % 0.1 % (0-2.0); HEMATOCRIT 41.4 % (35.4-49); HEMOGLOBIN 14.2 GM/dL (11.7-16.9); LYMPH % 2.8 % (8-40); MCHC 34.3 g/dl (32.0-35.9); MEAN CELL VOLUME 90.5 fl (80-96); MEAN PLT VOLUME 6.9 fl (7.5-11.1); MONO % 6.3 % (3.8-10.2); NEUT % 90.8 % (42.8-82.8); PLATELET COUNT 378 K/MM3 (134-434); RBC 4.57 M/mm3 (4.00-5.60); RDW 13.7 % (11.9-15.9); WHITE BLOOD COUNT 11.4 K/mm3 (4.0-10.0)
[2020-07-22 08:33] LABS: ALBUMIN 3.3 g/dl (3.4-5.0); BLOOD UREA NITROGEN 55.3 mg/dL (7-18); CALCIUM 9.5 mg/dL (8.5-10.1)
[2020-07-22 08:36] LABS: CREATININE 1.2 mg/dL (0.55-1.3); PHOSPHOROUS 3.2 mg/dL (2.5-4.9)
[2020-07-22 08:37] LABS: BILIRUBIN,TOTAL 0.3 mg/dL (0.2-1); TOT PROT 6.8 g/dl (6.4-8.2)
[2020-07-22] MEDS: PANTOPRAZOLE 40 MG TABLET PO SCH (09:35)
[2020-07-22] MEDS: TAMSULOSIN HCL 0.4 MG CAP PO SCH (09:35)
[2020-07-22] MEDS: AZITHROMYCIN 250 MG TABLET PO SCH (09:35)
[2020-07-22] MEDS: BUDESONIDE/FORMETEROL FUMARATE 160/4.5 mcg INHALER IH SCH ×2 (09:36→21:34)
[2020-07-22] MEDS: ENOXAPARIN NA (PORCINE) 40 MG/0.4 ML DISP.SYRIN SQ SCH (09:37)
[2020-07-22] MEDS: SENNOSIDES 8.6MG TABLET (FP) PO PRN (21:32)
[2020-07-22] MEDS: MELATONIN 5 MG TABLETS PO PRN (21:32)
[2020-07-22] MEDS: MONTELUKAST NA 10 MG TABLET PO SCH (21:32)
[2020-07-23] MEDS: methylPREDNISolone NA SUCC 40 MG/1 ML VIAL IVPUSH SCH ×2 (01:23→10:01)
[2020-07-23] MEDS: ALBUTEROL SO4 2.5/IPRATROPIUM 0.5 INH SOL 3 ML VIAL.NEB. NEB SCH ×5 (07:15→20:24)
[2020-07-23 07:43] LABS: HEMATOCRIT 43.6 % (35.4-49); HEMOGLOBIN 14.8 GM/dL (11.7-16.9); MCH 30.9 pg (25.7-33.7); MCHC 33.9 g/dl (32.0-35.9); MEAN PLT VOLUME 6.9 fl (7.5-11.1); PLATELET COUNT 383 K/MM3 (134-434); RBC 4.78 M/mm3 (4.00-5.60); RDW 13.7 % (11.9-15.9); WHITE BLOOD COUNT 12.1 K/mm3 (4.0-10.0)
[2020-07-23 08:09] LABS: CALCIUM 9.3 mg/dL (8.5-10.1); MAGNESIUM 2.9 mg/dL (1.8-2.4)
[2020-07-23 08:11] LABS: CREATININE 1.3 mg/dL (0.55-1.3)
[2020-07-23 08:12] LABS: PHOSPHOROUS 3.2 mg/dL (2.5-4.9)
[2020-07-23] MEDS: TAMSULOSIN HCL 0.4 MG CAP PO SCH (08:39)
[2020-07-23 09:47] VITALS: BMI 17.8
[2020-07-23] MEDS: PANTOPRAZOLE 40 MG TABLET PO SCH (10:01)
[2020-07-23] MEDS: ENOXAPARIN NA (PORCINE) 40 MG/0.4 ML DISP.SYRIN SQ SCH (10:01)
[2020-07-23] MEDS: BUDESONIDE/FORMETEROL FUMARATE 160/4.5 mcg INHALER IH SCH ×2 (10:02→21:27)
[2020-07-23] MEDS: MONTELUKAST NA 10 MG TABLET PO SCH (21:27)
[2020-07-23] MEDS: MELATONIN 5 MG TABLETS PO PRN (21:27)
[2020-07-23] MEDS ORDERED: methylPREDNISolone NA SUCC 40 MG/1 ML VIAL IVPUSH SCH (22:00)
[2020-07-24 07:51] LABS: HEMOGLOBIN 14.3 GM/dL (11.7-16.9); MCH 30.8 pg (25.7-33.7); MEAN CELL VOLUME 90.7 fl (80-96); MEAN PLT VOLUME 6.9 fl (7.5-11.1); PLATELET COUNT 331 K/MM3 (134-434); RBC 4.63 M/mm3 (4.00-5.60); RDW 13.7 % (11.9-15.9); WHITE BLOOD COUNT 11.6 K/mm3 (4.0-10.0)
[2020-07-24 08:20] LABS: CALCIUM 9.7 mg/dL (8.5-10.1)
[2020-07-24 08:22] LABS: BLOOD UREA NITROGEN 49.1 mg/dL (7-18); MAGNESIUM 2.7 mg/dL (1.8-2.4)
[2020-07-24 08:24] LABS: CREATININE 1.1 mg/dL (0.55-1.3)
[2020-07-24] MEDS: TAMSULOSIN HCL 0.4 MG CAP PO SCH (08:41)
[2020-07-24] MEDS: ALBUTEROL SO4 2.5/IPRATROPIUM 0.5 INH SOL 3 ML VIAL.NEB. NEB SCH ×2 (08:54→11:34)
[2020-07-24] MEDS: ENOXAPARIN NA (PORCINE) 40 MG/0.4 ML DISP.SYRIN SQ SCH (09:41)
[2020-07-24] MEDS: PANTOPRAZOLE 40 MG TABLET PO SCH (09:41)
[2020-07-24] MEDS: BUDESONIDE/FORMETEROL FUMARATE 160/4.5 mcg INHALER IH SCH (09:42)
[2020-07-24] MEDS ORDERED: predniSONE 20 MG TABLET (UD) PO SCH (10:00)
[2020-07-24 15:11] VITALS: BP 135/84; PULSE 122; TEMP 98.9
== END 2020-07-24 17:32 | disposition home or self-care (01) | DRG 140 ==
LOC: JER 13:52 → JERBED 18:58 → J8W 22:10
PROVIDERS: ADMIT Internal Medicine; ATTEND Internal Medicine
DX: J44.1 Chronic obstructive pulmonary disease with (acute) exacerbation (principal); N40.0 Benign prostatic hyperplasia without lower urinary tract symptoms; K21.9 Gastro-esophageal reflux disease without esophagitis; N13.30 Unspecified hydronephrosis; F17.210 Nicotine dependence, cigarettes, uncomplicated; R32 Unspecified urinary incontinence; R00.0 Tachycardia, unspecified; J96.01 Acute respiratory failure with hypoxia; J96.02 Acute respiratory failure with hypercapnia; N17.9 Acute kidney failure, unspecified; R94.31 Abnormal electrocardiogram [ECG] [EKG]; R94.5 Abnormal results of liver function studies; E43 Unspecified severe protein-calorie malnutrition; Z68.1 Body mass index [BMI] 19.9 or less, adult
CPT/HCPCS: 36415; 36600; 71045-TC-FY; 80048; 80053; 81003; 82550; 82803; 83735; 84100; 84436; 84439; 84443; 84479; 84480; 84484; 85025; 85027; 87804; 90670; 93005; 93010; 94640; 94761; 97116-GP; 97161-GP; 99284-25; 99285-25; C9803; G0008; G0009; Q2036; U0003; U0005

== ENCOUNTER 2020-09-03 04:43 | Inpatient (IN) | payer OTHER ==
[2020-09-03] MEDS ORDERED: ALBUTEROL SO4 2.5/IPRATROPIUM 0.5 INH SOL 3 ML VIAL.NEB. NEB ONE ×3 (05:00→05:55)
[2020-09-03] MEDS ORDERED: DEXAMETHASONE SOD PHOSPHATE 10 MG/1 ML VIAL IVPUSH ONE (05:43)
[2020-09-03] MEDS ORDERED: DEXAMETHASONE SOD PHOSPHATE 10 MG/1 ML VIAL ONE (05:56)
[2020-09-03 06:40] LABS: BASO % 0.6 % (0-2.0); EOS % 9.8 % (0-4.5); HEMATOCRIT 40.9 % (35.4-49); HEMOGLOBIN 13.9 GM/dL (11.7-16.9); LYMPH % 16.8 % (8-40); MCH 30.3 pg (25.7-33.7); MCHC 33.9 g/dl (32.0-35.9); MEAN CELL VOLUME 89.3 fl (80-96); MEAN PLT VOLUME 6.9 fl (7.5-11.1); MONO % 10.9 % (3.8-10.2); NEUT % 61.9 % (42.8-82.8); PLATELET COUNT 403 K/MM3 (134-434); RBC 4.58 M/mm3 (4.00-5.60); RDW 14.5 % (11.9-15.9); WHITE BLOOD COUNT 9.9 K/mm3 (4.0-10.0)
[2020-09-03 06:49] LABS: CHLORIDE 101 mmol/L (98-107); SODIUM 140 mmol/L (136-145)
[2020-09-03 06:51] LABS: ALBUMIN 3.2 g/dl (3.4-5.0); ANION GAP 4 MMOL/L (8-16); CALCIUM 9.4 mg/dL (8.5-10.1); CO2 35 mmol/L (21-32)
[2020-09-03 06:52] LABS: BLOOD UREA NITROGEN 29.5 mg/dL (7-18)
[2020-09-03] MEDS ORDERED: CEFEPIME HCL/D5W 2 GM/50 ML BAG IVPB ONE (06:54)
[2020-09-03 06:55] LABS: CREATININE 1.2 mg/dL (0.55-1.3); SGOT/AST 15 U/L (15-37); SGPT/ALT 15 U/L (13-61)
[2020-09-03 06:56] LABS: BILIRUBIN,TOTAL 0.2 mg/dL (0.2-1); TOT PROT 6.9 g/dl (6.4-8.2)
[2020-09-03 06:57] LABS: ALK PHOS 78 U/L (45-117)
[2020-09-03] MEDS ORDERED: CEFEPIME 2 GM/100 ML BAG IVPB ONE (07:08)
[2020-09-03 07:11] LABS: GLUCOSE,RANDOM 170 mg/dL (74-106)
[2020-09-03 12:18] VITALS: BMI 18.6
[2020-09-03] MEDS ORDERED: DOCUSATE SODIUM 100 MG CAPSULE (FP) PO PRN (12:57)
[2020-09-03] MEDS ORDERED: AZITHROMYCIN IVPB 500 MG in DEXTROSE 5%-WATER - 250 ML IVPB SCH (13:15)
[2020-09-03] MEDS: ALBUTEROL SO4 0.083% IH SOL 2.5 MG/3 ML VIAL.NEB. NEB PRN (13:44)
[2020-09-03] MEDS: TAMSULOSIN HCL 0.4 MG CAP PO SCH ×2 (14:06→22:02)
[2020-09-03] MEDS: methylPREDNISolone NA SUCC 40 MG/1 ML VIAL IVPUSH SCH ×2 (14:12→22:00)
[2020-09-03] MEDS ORDERED: AZITHROMYCIN IVPB 500 MG/250 ML BAG IVPB SCH (14:17)
[2020-09-03] MEDS: ALBUTEROL SO4 2.5/IPRATROPIUM 0.5 INH SOL 3 ML VIAL.NEB. NEB SCH ×2 (15:35→20:30)
[2020-09-03] MEDS: AZITHROMYCIN IVPB 500 MG/250 ML BAG IVPB SCH (15:55)
[2020-09-03] MEDS ORDERED: INSULIN SLIDING SCALE (NOVOLOG) 1 VIAL SQ SCH (16:30)
[2020-09-03] MEDS ORDERED: PT OWN MED DRAWER 7, Y5N ONE ×2 (21:59→22:13)
[2020-09-03] MEDS: BUDESONIDE/FORMETEROL FUMARATE 160/4.5 mcg INHALER IH SCH (22:00)
[2020-09-03] MEDS: MONTELUKAST NA 10 MG TABLET PO SCH (22:02)
[2020-09-03] MEDS: INSULIN SLIDING SCALE (NOVOLOG) 1 VIAL SQ SCH (22:03)
[2020-09-04] MEDS: methylPREDNISolone NA SUCC 40 MG/1 ML VIAL IVPUSH SCH ×3 (04:15→21:13)
[2020-09-04] MEDS: INSULIN SLIDING SCALE (NOVOLOG) 1 VIAL SQ SCH ×4 (06:15→21:12)
[2020-09-04] MEDS: ALBUTEROL SO4 2.5/IPRATROPIUM 0.5 INH SOL 3 ML VIAL.NEB. NEB SCH ×4 (07:58→20:08)
[2020-09-04 09:07] LABS: BASO % 0.1 % (0-2.0); HEMATOCRIT 38.1 % (35.4-49); HEMOGLOBIN 12.7 GM/dL (11.7-16.9); LYMPH % 7.3 % (8-40); MCHC 33.4 g/dl (32.0-35.9); MEAN CELL VOLUME 89.7 fl (80-96); MEAN PLT VOLUME 6.5 fl (7.5-11.1); MONO % 4.4 % (3.8-10.2); NEUT % 88.2 % (42.8-82.8); PLATELET COUNT 369 K/MM3 (134-434); RBC 4.24 M/mm3 (4.00-5.60); RDW 14.5 % (11.9-15.9); WHITE BLOOD COUNT 13.3 K/mm3 (4.0-10.0)
[2020-09-04] MEDS: ENOXAPARIN NA (PORCINE) 40 MG/0.4 ML DISP.SYRIN SQ SCH (09:25)
[2020-09-04] MEDS: AZITHROMYCIN IVPB 500 MG/250 ML BAG IVPB SCH (09:25)
[2020-09-04] MEDS: TAMSULOSIN HCL 0.4 MG CAP PO SCH ×2 (09:25→21:12)
[2020-09-04] MEDS: INSULIN (LEVEMIR) 100 UNITS/ML UNITS SQ SCH ×2 (09:25→21:17)
[2020-09-04 09:26] LABS: BLOOD UREA NITROGEN 36.1 mg/dL (7-18); CALCIUM 9.3 mg/dL (8.5-10.1); MAGNESIUM 2.7 mg/dL (1.8-2.4)
[2020-09-04 09:30] LABS: CREATININE 1.2 mg/dL (0.55-1.3)
[2020-09-04] MEDS: BUDESONIDE/FORMETEROL FUMARATE 160/4.5 mcg INHALER IH SCH ×2 (11:30→21:10)
[2020-09-04] MEDS ORDERED: PT OWN MED DRAWER 7, Y5N ONE ×2 (20:46→21:58)
[2020-09-04] MEDS ORDERED: INSULIN (NOVOLOG) ASPART 100 UNITS/ML 10ML VIAL ONE (20:46)
[2020-09-04] MEDS: MONTELUKAST NA 10 MG TABLET PO SCH (21:12)
[2020-09-05] MEDS: ALBUTEROL SO4 0.083% IH SOL 2.5 MG/3 ML VIAL.NEB. NEB PRN (01:53)
[2020-09-05] MEDS: INSULIN SLIDING SCALE (NOVOLOG) 1 VIAL SQ SCH ×3 (06:16→16:52)
[2020-09-05] MEDS: ALBUTEROL SO4 2.5/IPRATROPIUM 0.5 INH SOL 3 ML VIAL.NEB. NEB SCH ×3 (08:48→16:53)
[2020-09-05] MEDS ORDERED: PT OWN MED DRAWER 7, Y5N ONE (09:04)
[2020-09-05 09:08] LABS: ALBUMIN 3.2 g/dl (3.4-5.0); BLOOD UREA NITROGEN 35.2 mg/dL (7-18); CALCIUM 9.1 mg/dL (8.5-10.1)
[2020-09-05 09:10] LABS: HEMATOCRIT 36.8 % (35.4-49); HEMOGLOBIN 12.4 GM/dL (11.7-16.9); MCH 30.1 pg (25.7-33.7); MCHC 33.7 g/dl (32.0-35.9); MEAN CELL VOLUME 89.3 fl (80-96); MEAN PLT VOLUME 6.7 fl (7.5-11.1); PLATELET COUNT 357 K/MM3 (134-434); RBC 4.12 M/mm3 (4.00-5.60); RDW 14.7 % (11.9-15.9); WHITE BLOOD COUNT 12.7 K/mm3 (4.0-10.0)
[2020-09-05 09:13] LABS: BILIRUBIN,TOTAL 0.3 mg/dL (0.2-1); TOT PROT 6.4 g/dl (6.4-8.2)
[2020-09-05] MEDS: BUDESONIDE/FORMETEROL FUMARATE 160/4.5 mcg INHALER IH SCH (09:17)
[2020-09-05] MEDS: TAMSULOSIN HCL 0.4 MG CAP PO SCH (09:17)
[2020-09-05] MEDS: INSULIN (LEVEMIR) 100 UNITS/ML UNITS SQ SCH (09:17)
[2020-09-05] MEDS: ENOXAPARIN NA (PORCINE) 40 MG/0.4 ML DISP.SYRIN SQ SCH (09:17)
[2020-09-05] MEDS: methylPREDNISolone NA SUCC 40 MG/1 ML VIAL IVPUSH SCH (09:17)
[2020-09-05] MEDS: AZITHROMYCIN IVPB 500 MG/250 ML BAG IVPB SCH (09:17)
[2020-09-05] MEDS ORDERED: INSULIN (NOVOLOG) ASPART 100 UNITS/ML 10ML VIAL ONE (11:14)
[2020-09-05 15:30] VITALS: BP 115/54; PULSE 82; TEMP 97.7
== END 2020-09-05 18:01 | disposition home or self-care (01) | DRG 140 ==
LOC: JER 04:43 → JERBED 06:05 → J5S 11:57
PROVIDERS: ADMIT Family Medicine; ATTEND Student in an Organized Health Care Education/Training Program
DX: J43.9 Emphysema, unspecified (principal); J84.10 Pulmonary fibrosis, unspecified; N40.0 Benign prostatic hyperplasia without lower urinary tract symptoms; K21.9 Gastro-esophageal reflux disease without esophagitis; F17.210 Nicotine dependence, cigarettes, uncomplicated; R73.9 Hyperglycemia, unspecified
CPT/HCPCS: 36415; 71045-TC-FY; 80048; 80053; 82550; 82962; 83036; 83735; 83880; 84100; 84484; 85025; 85027; 93005; 93010; 94640; 99285-25; C9803; J1100; U0003; U0005